=== PATIENT | female | born 1960 | race American Indian/Alaskan Native ===

== ENCOUNTER 2017-10-05 20:07 | Emergency (ER) | payer BC, OTHER ==
[2017-10-05 20:28] VITALS: BP 175/77
[2017-10-05] MEDS ORDERED: Bacitracin Oint 1 GM U/D Packet TOP ONE (20:42)
[2017-10-05] MEDS ORDERED: Clindamycin HCl 150 MG Cap PO ONE (20:48)
--- NOTE | 2017-10-05 20:52 | EDM.PDOC ---
ED HPI GENERAL MEDICAL PROBLEM - General Chief Complaint: Skin Complaint Stated Complaint: INFECTED LEG [id number] Time Seen by Provider: 10/05/17 20:40 Source of Information: Reports: Patient History Limitations: Reports: No Limitations - History of Present Illness INITIAL COMMENTS - FREE TEXT/NARRATIVE: This 56 yo female patient reports to the ED with an infection to her left posterior calf. The patient reports she noticed the symptoms yesterday, but it got much worse today. The patient reports no history of similar symptoms in the past. The patient reports that she is allergic to Cephalexin. Onset Date: 10/04/17 Duration: Constant, Getting Worse Location: Reports: Lower Extremity, Left Quality: Reports: Ache, Pressure, Sharp Severity: Moderate Improves with: Reports: None Worsens with: Reports: None Associated Symptoms: Reports: No Other Symptoms Treatments [employer]: Reports: Dressing(s), Other Medication(s) Left Lower Posterior Leg Pain Score (Numeric/FACES): 9 - Related Data Allergies Allergy/AdvReac Type Severity Reaction Status Date / Time No Known Allergies Allergy Verified 10/05/17 20:28 Home Meds: Home Meds Aspirin [Aspirin EC] 81 mg PO DAILY 04/09/13 [History] Insulin Detemir [Levemir Flexpen] 40 units SUBCUT DAILY 04/09/13 [History] Loratadine [Claritin] 10 mg PO PRN 04/09/13 [History] Montelukast Sodium 10 mg PO DAILY 04/09/13 [History] Multivitamin [Multi Vitamin Daily] 1 each PO DAILY 04/09/13 [History] atorvaSTATin Calcium [Atorvastatin Calcium] 40 mg PO DAILY 04/09/13 [History] glyBURIDE [Glyburide] 5 mg PO BID 04/09/13 [History] metFORMIN HCl [Metformin HCl] 1,000 mg PO BID 04/09/13 [History] Advair 06/09/13 [History] Proventil Inhaler 06/09/13 [History] Past Medical History HEENT History: Reports: Impaired Vision Cardiovascular History: Reports: High Cholesterol Gastrointestinal History: Reports: Cholelithiasis Endocrine/Metabolic History: Reports: Diabetes, Type II - Past Surgical History GI Surgical History: Reports: Appendectomy, Cholecystectomy Social & Family History - Tobacco Use Smoking Status *Q: Current Every Day Smoker Years of Tobacco use: 18 Packs/Tins Daily: 0.2 Second Hand Smoke Exposure: Yes - Caffeine Use Caffeine Use: Reports: Coffee, Soda - Recreational Drug Use Recreational Drug Use: No ED ROS GENERAL - Review of Systems Review Of Systems: ROS reveals no pertinent complaints other than HPI. ED EXAM, SKIN/RASH Exam: See Below Exam Limited By: No Limitations General Appearance: Alert, WD/WN, Mild Distress Eye Exam: Bilateral Eye: EOMI, Normal Inspection, PERRL Ears: Normal External Exam, Normal Canal, Hearing Grossly Normal, Normal TMs Nose: Normal Inspection, Normal Mucosa, No Blood Throat/Mouth: Normal Inspection, Normal Lips, Normal Teeth, Normal Gums, Normal Oropharynx, Normal Voice, No Airway Compromise Head: Atraumatic, Normocephalic Neck: Normal Inspection, Supple, Non-Tender, Full Range of Motion Respiratory/Chest: No Respiratory Distress, Lungs Clear, Normal Breath Sounds, No Accessory Muscle Use, Chest Non-Tender Cardiovascular: Normal Peripheral Pulses, Regular Rate, Rhythm, No Edema, No Gallop, No JVD, No Murmur, No Rub GI/Abdominal: Normal Bowel Sounds, Soft, Non-Tender, No Organomegaly, No Distention, No Abnormal Bruit, No Mass Rectal (Female) Exam: Deferred Back Exam: Normal Inspection, Full Range of Motion, NT Extremities: Other (The patient has an indurated, erythematous area on her posterior left calf (3 cm x 2 cm), the patient also has an ingrown fingernail on her right 3rd finger.) Neurological: Alert, Oriented, CN II-XII Intact, Normal Cognition, Normal Gait, Normal Reflexes, No Motor/Sensory Deficits Psychiatric: Normal Affect, Normal Mood Skin: Erythema, Increased Warmth Location, Skin: Upper Extremity, Right, Lower Extremity, Left Characteristics: Erythematous Associated features: Warmth, Tenderness, Swelling, Induration Lymphatic: No Adenopathy ED SKIN PROCEDURES - I&D Site: left posterior calf Skin Prep: Providone-Iodine (Betadine), Isopropyl Alcohol (Alcohol) Local Anesthesia: Lidocaine: Other (none) Area Incised With: Needle Drainage: Purulent, Moderate Amount Probed to Break Up Loculations: Yes Packed With: None Sterile Dressing: Adhesive Dressing Complications: No Course - Vital Signs Last Recorded V/S: Last Vital Signs Temp 36.8 C 10/05/17 20:27 Pulse 106 H 10/05/17 20:27 Resp 20 10/05/17 20:27 BP 175/77 H 10/05/17 20:27 Pulse Ox 99 10/05/17 20:27 - Orders/Labs/Meds Orders: Active Orders 24 hr Category Date Time Status CULTURE WOUND [RM] Stat Lab 10/05/17 20:31 Ordered Meds: Medications Discontinued Medications Generic Name Dose Route Start Last Admin Trade Name Jett PRN Reason Stop Dose Admin Bacitracin 1 dose 10/05/17 20:42 10/05/17 20:46 Bacitracin Oint 1 Gm TOP 10/05/17 20:43 1 dose ONETIME ONE Administration Clindamycin HCl 300 mg 10/05/17 20:48 10/05/17 20:54 Cleocin PO 10/05/17 20:49 300 mg ONETIME ONE Administration Departure - Departure Time of Disposition: 20:50 Disposition: Home, Self-Care 01 Condition: Fair Clinical Impression: Abscess of left lower leg, Encounter for incision and drainage procedure - Discharge Information Instructions: Skin Abscess, [id number], Incision and Drainage, Care After Forms: ED Department Discharge Care Plan Goals: The patient was advised of the examination during the visit. The abscess was incised and drained during the visit. The patient was given a dose of Clindamycin (300 mg) while in the ED. The patient was discharged with a script for Clindamycin (300 mg) #40 to take 1 by mouth 4 times per day for 10 days. If the patient has any additional symptoms or concerns, the patient should follow- up with her primary care facility or return to the emergency department. - My Orders Last 24 Hours: My Active Orders 10/05/17 20:31 CULTURE WOUND [RM] Stat - Assessment/Plan Last 24 Hours: My Active Orders 10/05/17 20:31 CULTURE WOUND [RM] Stat
== END 2017-10-05 20:59 | disposition home or self-care (01) ==
LOC: DL.ED 20:07
DX: L02.416 Cutaneous abscess of left lower limb (principal); E78.00 Pure hypercholesterolemia, unspecified; E11.9 Type 2 diabetes mellitus without complications; F17.210 Nicotine dependence, cigarettes, uncomplicated; Z79.82 Long term (current) use of aspirin; Z79.4 Long term (current) use of insulin
CPT/HCPCS: 10060; 87070; 87077; 87186; 99283; A9270-GY

== ENCOUNTER 2019-10-09 23:17 | Emergency (ER) | payer BC, MEDICAID, OTHER ==
[2019-10-09 23:23] VITALS: BP 166/69; PULSE 78
[2019-10-10 00:27] LABS: ANION GAP 13.5 mEq/L (7-13); CHLORIDE,CL 105 mmol/L (98-107); SODIUM,NA 139 mmol/L (136-145)
--- NOTE | 2019-10-10 00:40 | EDM.PDOC ---
ED HPI GENERAL MEDICAL PROBLEM - General Chief Complaint: ENT Problem Stated Complaint: AMBULANCE-NOSE BLEED Time Seen by Provider: 10/09/19 23:30 Source of Information: Reports: Patient, EMS History Limitations: Reports: No Limitations - History of Present Illness INITIAL COMMENTS - FREE TEXT/NARRATIVE: ED via [facility] with report of nose bleed that started around 2100 tonight. Better now. EMS report stopped with pressure. States worried with hx of anemia. - Related Data Allergies Allergy/AdvReac Type Severity Reaction Status Date / Time clindamycin Allergy Rash Verified 10/09/19 23:57 tramadol Allergy Vomiting Verified 10/09/19 23:57 Home Meds: Home Meds Insulin Detemir [Levemir Flexpen] 30 units SUBCUT DAILY 04/09/13 [History] Montelukast Sodium 10 mg PO DAILY 04/09/13 [History] atorvaSTATin Calcium [Atorvastatin Calcium] 40 mg PO DAILY 04/09/13 [History] glyBURIDE [Glyburide] 10 mg PO BID 04/09/13 [History] metFORMIN HCl [Metformin HCl] 1,000 mg PO BID 04/09/13 [History] Aspirin [Halfprin] 81 mg PO DAILY 03/16/18 [History] Ferrous Gluconate 324 mg PO DAILY 03/16/18 [History] Fluocinonide 30 gm TP BID 03/16/18 [History] Fluticasone Propionate [Flonase] 1 sprays NASBOTH BID 03/16/18 [History] Fluticasone/Salmeterol [Advair 250-50] 2 puff IH DAILY PRN 03/16/18 [History] Lisinopril 40 mg PO DAILY 03/16/18 [History] Loratadine [Claritin] 10 mg PO DAILY 03/16/18 [History] Menthol/Camphor [Anti-Itch Lotion] 1 applic TOP TID 03/16/18 [History] Metoprolol Succinate [Toprol XL] 25 mg PO DAILY 03/16/18 [History] Saxagliptin HCl [Onglyza] 5 mg PO DAILY 03/16/18 [History] hydrOXYzine HCL [hydrOXYzine] 25 mg PO BEDTIME PRN 03/16/18 [History] Past Medical History HEENT History: Reports: Impaired Vision Cardiovascular History: Reports: High Cholesterol, Hypertension Respiratory History: Reports: Asthma, Bronchitis, Recurrent Gastrointestinal History: Reports: Cholelithiasis [employer]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 - Past Surgical History GI Surgical History: Reports: Appendectomy, Cholecystectomy Social & Family History - Family History Family Medical History: Noncontributory - Tobacco Use Smoking Status *Q: Former Smoker Used Tobacco, but Quit: Yes Month/Year Tobacco Last Used: 02/12 Second Hand Smoke Exposure: No - Caffeine Use Caffeine Use: Reports: Coffee Other Caffeine Use: 1 cup/day - Recreational Drug Use Recreational Drug Use: No ED ROS ENT - Review of Systems Review Of Systems: See Below Constitutional: Reports: No Symptoms HEENT: Reports: Nosebleed Respiratory: Reports: No Symptoms Cardiovascular: Reports: No Symptoms Endocrine: Reports: No Symptoms GI/Abdominal: Reports: No Symptoms Musculoskeletal: Reports: No Symptoms Skin: Reports: No Symptoms ED EXAM, ENT - Physical Exam Exam: See Below Exam Limited By: No Limitations General Appearance: Alert, No Apparent Distress, Anxious Ears: Normal External Exam Nose: Other (scant blood right nare, no active bleeding) Mouth/Throat: Normal Inspection Head: Atraumatic, Normocephalic Respiratory/Chest: No Respiratory Distress, Lungs Clear Cardiovascular: Normal Peripheral Pulses, Regular Rate, Rhythm GI/Abdominal: Normal Bowel Sounds Neurological: Alert, Oriented Psychiatric: Normal Mood, Anxious (mild) Skin: Warm, Dry, Intact Course - Vital Signs Last Recorded V/S: Last Vital Signs Temp 97.9 F 10/09/19 23:22 Pulse 78 10/09/19 23:22 Resp 16 10/09/19 23:22 BP 166/69 H 10/09/19 23:22 Pulse Ox 99 10/09/19 23:22 - Orders/Labs/Meds Labs: Laboratory Tests 10/09/19 10/09/19 10/09/19 Range/Units 23:55 23:55 23:55 WBC 6.7 (5.0-10.0) 10^3/uL RBC 3.23 L (4.2-5.4) 10^6/uL Hgb 8.9 L (12.0-16.0) g/dL Hct 28.3 L (37.0-47.0) % MCV 87.6 (80-100) fL MCH 27.6 (27.0-34.0) pg MCHC 31.4 L (33.0-35.0) g/dL Plt Count 420 D (150-450) 10^3/uL Neut % (Auto) 67.4 (42.2-75.2) % Lymph % (Auto) 18.7 L (20.5-50.1) % Nobles % (Auto) 9.0 H (2-8) % Eos % (Auto) 4.5 H (1.0-3.0) % Baso % (Auto) 0.4 (0.0-1.0) % PT 9.4 (9.0-12.0) SEC INR 1.0 (0.9-1.2) Sodium 139 (136-145) mmol/L Potassium 4.5 (3.5-5.1) mmol/L Chloride 105 (98-107) mmol/L Carbon Dioxide 25 (21-32) mmol/L Anion Gap 13.5 H (7-13) mEq/L BUN 11 (7-18) mg/dL Creatinine 0.95 (0.55-1.02) mg/dL Est Cr Clr Drug Dosing 58.95 mL/min Estimated GFR (MDRD) > 60 BUN/Creatinine Ratio 11.6 (No establ ref range) Glucose 116 H (74-99) mg/dL Calcium 8.6 (8.5-10.1) mg/dL Total Bilirubin 0.2 (0.2-1.0) mg/dL AST 8 L (15-37) U/L ALT 21 (14-59) U/L Alkaline Phosphatase 139 H (46-116) U/L Total Protein 6.4 (6.4-8.2) g/dL Albumin 3.3 L (3.4-5.0) g/dL Globulin 3.1 Albumin/Globulin Ratio 1.06 Departure - Departure Time of Disposition: 00:45 Disposition: Home, Self-Care 01 Condition: Good Clinical Impression: Bleeding nose - Discharge Information *PRESCRIPTION DRUG MONITORING PROGRAM REVIEWED*: No *COPY OF PRESCRIPTION DRUG MONITORING REPORT IN PATIENT CRISTINO: No Instructions: Nosebleed, [id number] Forms: ED Department Discharge Additional Instructions: humidification light activity follow up if recurrent severe and does not stop after 5 minutes of pressure follow up with PCP to recheck blood work next week Sepsis Event Note (ED) - Evaluation Sepsis Screening Result: No Definite Risk
== END 2019-10-10 00:44 | disposition home or self-care (01) ==
LOC: DL.ED 23:17
DX: R04.0 Epistaxis (principal); I10 Essential (primary) hypertension; E78.00 Pure hypercholesterolemia, unspecified; E11.9 Type 2 diabetes mellitus without complications; J45.909 Unspecified asthma, uncomplicated; D64.9 Anemia, unspecified; Z87.891 Personal history of nicotine dependence; Z88.1 Allergy status to other antibiotic agents; Z88.5 Allergy status to narcotic agent; Z79.4 Long term (current) use of insulin; Z79.82 Long term (current) use of aspirin; Z79.899 Other long term (current) drug therapy
CPT/HCPCS: 36415; 80053; 85025; 85610; 99283

== ENCOUNTER 2020-01-01 17:07 | Emergency (ER) | payer MEDICAID ==
[2020-01-01] MEDS ORDERED: Sodium Chloride 0.9% 10 ML Syringe FLUSH PRN (17:29)
[2020-01-01] MEDS ORDERED: Dexamethasone 4 MG/ML SDV IVPUSH ONE (17:30)
--- NOTE | 2020-01-01 17:33 | EDM.PDOC ---
"ED HPI GENERAL MEDICAL PROBLEM - General Chief Complaint: Respiratory Problem Stated Complaint: Altered mental status, Hypoxia Time Seen by Provider: 01/01/20 17:32 Source of Information: Reports: Patient, EMS, Old Records, RN, RN Notes Reviewed History Limitations: Reports: Altered Mental Status - History of Present Illness INITIAL COMMENTS - FREE TEXT/NARRATIVE: Pt arrives from home by ambulance with c/o altered mental status and hypoxia. Pt was admitted to [facility] on 12/21/19 COVID positive with diarrhea, weakness, shortness of breath, headache, and cough. Initial COVID was positive on 12/21/19 at [facility]. While admitted at [facility] pt was treated with Remdesivir, convalescent plasma, and Dexamethasone. Pt recovered well and was discharged home on Oxygen 2L by [place], Eliquis 5mg due to elevating D-dimer, and Augmentin for secondary infection. Pt is confused and provides very limited history. She admits to shortness of breath, she thinks she fell at home due to weakness and dizziness. Duration: Week(s): (2) - Related Data Allergies Allergy/AdvReac Type Severity Reaction Status Date / Time clindamycin Allergy Rash Verified 10/09/19 23:57 tramadol Allergy Vomiting Verified 10/09/19 23:57 Home Meds: Home Meds Insulin Detemir [Levemir Flexpen] 30 units SUBCUT DAILY 04/09/13 [History] Montelukast Sodium 10 mg PO DAILY 04/09/13 [History] atorvaSTATin Calcium [Atorvastatin Calcium] 40 mg PO DAILY 04/09/13 [History] glyBURIDE [Glyburide] 10 mg PO BID 04/09/13 [History] metFORMIN HCl [Metformin HCl] 1,000 mg PO BID 04/09/13 [History] Aspirin [Halfprin] 81 mg PO DAILY 03/16/18 [History] Ferrous Gluconate 324 mg PO DAILY 03/16/18 [History] Fluocinonide 30 gm TP BID 03/16/18 [History] Fluticasone Propionate [Flonase] 1 sprays NASBOTH BID 03/16/18 [History] Fluticasone/Salmeterol [Advair 250-50] 2 puff IH DAILY PRN 03/16/18 [History] Lisinopril 40 mg PO DAILY 03/16/18 [History] Loratadine [Claritin] 10 mg PO DAILY 03/16/18 [History] Menthol/Camphor [Anti-Itch Lotion] 1 applic TOP TID 03/16/18 [History] Metoprolol Succinate [Toprol XL] 25 mg PO DAILY 03/16/18 [History] Saxagliptin HCl [Onglyza] 5 mg PO DAILY 03/16/18 [History] hydrOXYzine HCL [hydrOXYzine] 25 mg PO BEDTIME PRN 03/16/18 [History] Past Medical History HEENT History: Reports: Impaired Vision Cardiovascular History: Reports: High Cholesterol, Hypertension Respiratory History: Reports: Asthma, Bronchitis, Recurrent Gastrointestinal History: Reports: Cholelithiasis [employer] History: Reports: Endocrine/Metabolic History: Reports: Diabetes, Type II Hematologic History: Reports: Anemia, Blood Transfusion(s) Other Hematologic History: 2 units at [facility] recently Dermatologic History: Reports: Other (See Below) Other Dermatologic History: Rash througout body. - Past Surgical History GI Surgical History: Reports: Appendectomy, Cholecystectomy Social & Family History - Family History Family Medical History: Noncontributory - Caffeine Use Caffeine Use: Reports: Coffee Other Caffeine Use: 1 cup/day ED ROS GENERAL - Review of Systems Review Of Systems: Unable To Obtain Reason Not Obtained: Altered mental status ED EXAM, GENERAL - Physical Exam Exam: See Below Exam Limited By: Altered Mental Status General Appearance: Lethargic, Mild Distress, Other (Acutely ill appearing) Eye Exam: Bilateral Eye: EOMI (sluggish B/L) Nose: Normal Inspection, Normal Mucosa, No Blood Throat/Mouth: Normal Lips, Normal Oropharynx, Normal Voice, No Airway Compromise, Other (Dry oral mucosa) Head: Atraumatic, Normocephalic Neck: Normal Inspection, Non-Tender Respiratory/Chest: No Accessory Muscle Use, Decreased Breath Sounds, Crackles. No: Rales, Rhonchi, Wheezing Cardiovascular: Normal Peripheral Pulses, Regular Rate, Rhythm, No Edema GI/Abdominal: Normal Bowel Sounds, Soft, Non-Tender (Female) Exam: Deferred Rectal (Female) Exam: Heme + Stool Extremities: Normal Inspection Neurological: Confused, Disoriented, Slow to Respond Skin Exam: Warm, Dry, Intact, Normal Color, No Rash EKG INTERPRETATION EKG Date: 01/01/20 Time: 17:27 Rhythm: Other (SR) Rate (Beats/Min): 75 [place]: Normal P-Wave: Present QRS: Normal ST-T: Normal QT: Prolonged Comparison: NA - No Prior EKG Course - Vital Signs Last Recorded V/S: Last Vital Signs Temp 96.8 F L 01/01/20 17:40 Pulse 73 01/01/20 17:40 Resp 22 H 01/01/20 17:40 BP 89/29 L 01/01/20 17:40 Pulse Ox 92 L 01/01/20 17:40 - Orders/Labs/Meds Orders: Active Orders 24 hr Category Date Time Status Blood Glucose Check, Bedside [RC] ONETIME Care 01/01/20 17:44 Active EKG 12 Lead [EKG Documentation Completion] [RC] STAT Care 01/01/20 17:29 Active Peripheral IV Care [RC] . DIRECTED Care 01/01/20 17:30 Active Verify Patient Consent Obtain [RC] ASDIRECTED Care 01/01/20 18:15 Active CULTURE BLOOD [BC] Stat Lab 01/01/20 17:38 Received CULTURE BLOOD [BC] Stat Lab 01/01/20 17:45 Received RED BLOOD CELLS LP [BBK] Stat Lab 01/01/20 17:38 Received TYPE AND SCREEN [BBK] Stat Lab 01/01/20 17:38 Received Norepinephrine [Levophed] 4 mg Med 01/01/20 18:30 Active Dextrose 5% in Water 246 ml IV TITRATE Sodium Chloride 0.9% [Saline Flush] Med 01/01/20 17:29 Active 10 ml FLUSH ASDIRECTED PRN Blood Culture x2 Reflex Set [OM.PC] Stat Oth 01/01/20 17:30 Ordered Blood Transfusion Reflex Orders [OM.PC] Routine Oth 01/01/20 18:14 Ordered Peripheral IV Insertion Adult [OM.PC] Stat Oth 01/01/20 17:29 Ordered Transfuse Red Blood Cells [COMM] Stat Oth 01/01/20 18:14 Ordered Medication Orders Norepinephrine Bitartrate 4 mg (/ Dextrose/Water) 250 mls @ 18.75 mls/hr IV TITRATE ELVIRA; Protocol Sodium Chloride (Saline Flush) 10 ml FLUSH ASDIRECTED PRN PRN Reason: Keep Vein Open Last Admin: 01/01/20 17:50 Dose: 10 ml Documented by: CYRIL Labs: Laboratory Tests 01/01/20 01/01/20 01/01/20 Range/Units 17:38 17:38 17:38 WBC 18.4 H (5.0-10.0) 10^3/uL RBC 2.10 L (4.2-5.4) 10^6/uL Hgb 5.7 L* D (12.0-16.0) g/dL Hct 18.5 L* (37.0-47.0) % MCV 88.1 (80-100) fL MCH 27.1 (27.0-34.0) pg MCHC 30.8 L (33.0-35.0) g/dL Plt Count 524 H D (150-450) 10^3/uL Neut % (Auto) (42.2-75.2) % Add Manual Diff Yes Neutrophils % (Manual) 79 H (42-75) % Band Neutrophils % 3 % Lymphocytes % (Manual) 7 L (20-50) % Monocytes % (Manual) 7 (2-8) % Myelocytes % 4 Hypochromasia 1+ slight Poikilocytosis 1+ slight PT 11.3 (9.0-12.0) SEC INR 1.2 (0.9-1.2) APTT 23.8 (22.0-34.0) SEC D-Dimer, Quantitative 989 H (0-400) ng/mL ABG pH (7.35-7.45) ABG pCO2 (35-45) mmHg ABG pO2 (70-100) mmHg ABG HCO3 (22-26) mmol/L ABG O2 Saturation (95-100) % ABG Base Excess ((-2)-(+3)) mmol/L Hai Test O2 Delivery Device Oxygen Flow Rate Sodium 131 L (136-145) mmol/L Potassium 5.5 H (3.5-5.1) mmol/L Chloride 100 (98-107) mmol/L Carbon Dioxide 20 L (21-32) mmol/L Anion Gap 16.5 H (7-13) mEq/L BUN 35 H (7-18) mg/dL Creatinine 1.35 H (0.55-1.02) mg/dL Est Cr Clr Drug Dosing TNP Estimated GFR (MDRD) 40 BUN/Creatinine Ratio 25.9 (No establ ref range) Glucose 377 H (74-99) mg/dL POC Glucose (70-105) mg/dl Lactic Acid (0.4-2.0) mmol/L Calcium 7.5 L (8.5-10.1) mg/dL Total Bilirubin 0.2 (0.2-1.0) mg/dL AST 11 L (15-37) U/L ALT 26 (14-59) U/L Alkaline Phosphatase 100 (46-116) U/L Troponin I < 0.017 (0.000-0.056) ng/mL B-Natriuretic Peptide 24 (0-100) pg/ml Total Protein 4.2 L (6.4-8.2) g/dL Albumin 1.7 L (3.4-5.0) g/dL Globulin 2.5 Albumin/Globulin Ratio 0.68 01/01/20 01/01/20 01/01/20 Range/Units 17:38 17:45 17:45 WBC (5.0-10.0) 10^3/uL RBC (4.2-5.4) 10^6/uL Hgb (12.0-16.0) g/dL Hct (37.0-47.0) % MCV (80-100) fL MCH (27.0-34.0) pg MCHC (33.0-35.0) g/dL Plt Count (150-450) 10^3/uL Neut % (Auto) (42.2-75.2) % Add Manual Diff Neutrophils % (Manual) (42-75) % Band Neutrophils % % Lymphocytes % (Manual) (20-50) % Monocytes % (Manual) (2-8) % Myelocytes % Hypochromasia Poikilocytosis PT (9.0-12.0) SEC INR (0.9-1.2) APTT (22.0-34.0) SEC D-Dimer, Quantitative (0-400) ng/mL ABG pH 7.42 (7.35-7.45) ABG pCO2 29 L (35-45) mmHg ABG pO2 75 (70-100) mmHg ABG HCO3 18.0 L (22-26) mmol/L ABG O2 Saturation 96 (95-100) % ABG Base Excess -6 L ((-2)-(+3)) mmol/L Hai Test Lb O2 Delivery Device Nasal cannula Oxygen Flow Rate 4 Sodium (136-145) mmol/L Potassium (3.5-5.1) mmol/L Chloride (98-107) mmol/L Carbon Dioxide (21-32) mmol/L Anion Gap (7-13) mEq/L BUN (7-18) mg/dL Creatinine (0.55-1.02) mg/dL Est Cr Clr Drug Dosing Estimated GFR (MDRD) BUN/Creatinine Ratio (No establ ref range) Glucose (74-99) mg/dL POC Glucose 383 H (70-105) mg/dl Lactic Acid 3.8 H* (0.4-2.0) mmol/L Calcium (8.5-10.1) mg/dL Total Bilirubin (0.2-1.0) mg/dL AST (15-37) U/L ALT (14-59) U/L Alkaline Phosphatase (46-116) U/L Troponin I (0.000-0.056) ng/mL B-Natriuretic Peptide (0-100) pg/ml Total Protein (6.4-8.2) g/dL Albumin (3.4-5.0) g/dL Globulin Albumin/Globulin Ratio Hemoccult Stool: POSITIVE Meds: Medications Generic Name Dose Route Start Last Admin Trade Name Freq PRN Reason Stop Dose Admin Norepinephrine Bitartrate 4 mg 250 mls @ 18.75 mls/hr 01/01/20 18:30 / Dextrose/Water IV TITRATE ELVIRA Protocol 5 MCG/MIN Sodium Chloride 10 ml 01/01/20 17:29 01/01/20 17:50 Saline Flush FLUSH 10 ml ASDIRECTED PRN Administration Keep Vein Open Discontinued Medications Generic Name Dose Route Start Last Admin Trade Name Freq PRN Reason Stop Dose Admin Acetaminophen 650 mg 01/01/20 18:14 01/01/20 18:28 Tylenol PO 01/01/20 18:15 650 mg NOW ONE Administration Dexamethasone 6 mg 01/01/20 17:30 01/01/20 17:49 Dexamethasone IVPUSH 01/01/20 17:31 6 mg ONETIME ONE Administration Diphenhydramine HCl 12.5 mg 01/01/20 18:14 01/01/20 18:28 Benadryl IV 01/01/20 18:15 12.5 mg ONETIME ONE Administration Iopamidol 100 ml 01/01/20 17:52 [id number] (76%) IVPUSH 01/01/20 17:53 ONETIME ONE Pantoprazole Sodium 80 mg 01/01/20 18:38 Protonix Iv IVPUSH 01/01/20 18:39 .BOLUS ONE - Radiology Interpretation Free Text/Narrative:: [facility] [place] [facility] Final Radiology Report Call: [phone] assistance Online chat: [email or web address] Name: LAVELL SANON Age: 59Years F Date: 01/01/2020 SSN: -- : 1960 Study: CT CHEST W CONT Requesting Physician: CYNTHIA CABRERA Images: [id number] Addl Studies: Provided Clinical History: COVID, suddenly worse hypoxia, poss. PE Contrast: With Contrast Medium: [id number] Contrast Amount: 81 mL Contrast Method: Intravenous (IV) Page 1 of 2 PROCEDURE INFORMATION: Exam: CT Chest With Contrast Exam date and time: 01/01/2020 6:04 PM Age: 59 years old Clinical indication: Other: D-dimer >1900; Additional info: Covid, suddenly worse hypoxia, poss. Pe TECHNIQUE: Imaging protocol: Computed tomography of the chest with intravenous contrast. Radiation optimization: All CT scans at this facility use at least one of these dose optimization techniques: automated exposure control; mA and/or kV adjustment per patient size (includes targeted exams where dose is matched to clinical indication); or iterative reconstruction. Contrast material: [id number]; Contrast volume: 81 ml; Contrast route: I NTRAVENOUS (IV); COMPARISON: CT Chest w Cont 03/03/2018 2:13 PM FINDINGS: Lungs: There are areas of peripheral airspace opacity with ground-glass opacity and nodular character. Consolidation is present within the left lower lobe. Findings are compatible the patient's known Covid 19 pneumonia. Pleural space: Unremarkable. No pneumothorax. No pleural effusion. Heart: The heart appears to be mildly enlarged. There is no pericardial effusion. Mild coronary atherosclerosis noted along the course of the left anterior descending coronary artery. Aorta: Unremarkable. No aortic aneurysm. Lymph nodes: Unremarkable. No enlarged lymph nodes. Bones/joints: Unremarkable. No acute fracture. Soft tissues: Unremarkable. IMPRESSION: LAVELL SANON | Final Radiology Report CONFIDENTIALITY STATEMENT This report is intended only for use by the referring physician, and only in accordance with law. If you received this in error, call [phone]. Page 2 of 2 1. No pulmonary embolism present. 2. Persisting multifocal peripheral airspace opacity with fluctuating pattern when compared to the previous examination. Findings compatible the patient's known Covid 19 pneumonia. 3. Cardiomegaly with mild coronary atherosclerosis. Thank you for allowing us to participate in the care of your patient. Dictated and Authenticated by: Jovanni Christianson MD 01/01/2020 6:33 PM Central Time ([place] & [place]) - Re-Assessments/Exams Free Text/Narrative Re-Assessment/Exam: 01/01/20 18:08 *I consulted Dr. Noonan via [employer], and obtained a copy of the pt's discharge summary. Departure - Departure Time of Disposition: 18:35 Disposition: DC/Tfer to [facility] Condition: Critical Clinical Impression: Severe anemia, COVID-19, Acute respiratory failure due to COVID-19 Sepsis Qualifiers: Sepsis type: sepsis due to unspecified organism Sepsis acute organ dysfunction status: with acute organ dysfunction Severe sepsis acute organ dysfunction type: acute respiratory failure Acute respiratory failure type: with hypoxia Severe sepsis shock status: with septic shock Qualified Code(s): A41.9 - Sepsis, unspecified organism; R65.21 - Severe sepsis with septic shock; J96.01 - Acute respiratory failure with hypoxia GI bleed Qualifiers: GI bleed type/associated pathology: unspecified gastrointestinal hemorrhage type Qualified Code(s): K92.2 - Gastrointestinal hemorrhage, unspecified - Discharge Information *PRESCRIPTION DRUG MONITORING PROGRAM REVIEWED*: Not Applicable *COPY OF PRESCRIPTION DRUG MONITORING REPORT IN PATIENT CRISTINO: Not Applicable Forms: ED Department Discharge, Interfacility Transfer EMTALA Sepsis Event Note (ED) - Focused Exam Vital Signs: Vital Signs Temp Pulse Resp BP Pulse Ox 01/01/20 17:40 96.8 F L 73 22 H 89/29 L 92 L - My Orders Last 24 Hours: My Active Orders 01/01/20 17:29 EKG 12 Lead [EKG Documentation Completion] [RC] STAT Sodium Chloride 0.9% [Saline Flush] 10 ml FLUSH ASDIRECTED PRN Peripheral IV Insertion Adult [OM.PC] Stat 01/01/20 17:30 Peripheral IV Care [RC] . DIRECTED Blood Culture x2 Reflex Set [OM.PC] Stat 01/01/20 17:38 CULTURE BLOOD [BC] Stat RED BLOOD CELLS LP [BBK] Stat TYPE AND SCREEN [BBK] Stat 01/01/20 17:44 Blood Glucose Check, Bedside [RC] ONETIME 01/01/20 17:45 CULTURE BLOOD [BC] Stat 01/01/20 18:14 Blood Transfusion Reflex Orders [OM.PC] Routine Transfuse Red Blood Cells [COMM] Stat 01/01/20 18:15 Verify Patient Consent Obtain [RC] ASDIRECTED 01/01/20 18:30 Norepinephrine [Levophed] 4 mg Dextrose 5% in Water 246 ml IV TITRATE - Assessment/Plan Last 24 Hours: My Active Orders 01/01/20 17:29 EKG 12 Lead [EKG Documentation Completion] [RC] STAT Sodium Chloride 0.9% [Saline Flush] 10 ml FLUSH ASDIRECTED PRN Peripheral IV Insertion Adult [OM.PC] Stat 01/01/20 17:30 Peripheral IV Care [RC] . DIRECTED Blood Culture x2 Reflex Set [OM.PC] Stat 01/01/20 17:38 CULTURE BLOOD [BC] Stat RED BLOOD CELLS LP [BBK] Stat TYPE AND SCREEN [BBK] Stat 01/01/20 17:44 Blood Glucose Check, Bedside [RC] ONETIME 01/01/20 17:45 CULTURE BLOOD [BC] Stat 01/01/20 18:14 Blood Transfusion Reflex Orders [.PC] Routine Transfuse Red Blood Cells [COMM] Stat 01/01/20 18:15 Verify Patient Consent Obtain [RC] ASDIRECTED 01/01/20 18:30 Norepinephrine [Levophed] 4 mg Dextrose 5% in Water 246 ml IV TITRATE"
[2020-01-01 17:46] LABS: BASE EXCESS ARTERIAL -6 mmol/L ((-2)-(+3)); O2 DELIVERY DEVICE NASAL CANNULA; O2 SATURATION ARTERIAL 96 % (95-100); PCO2 ARTERIAL 29 mmHg (35-45); PO2 ARTERIAL 75 mmHg (70-100)
[2020-01-01 17:48] LABS: ALLEN TEST LB; O2 FLOW RATE 4
[2020-01-01 17:49] VITALS: BP 89/29; PULSE 73
[2020-01-01] MEDS ORDERED: Iopamidol 755 Mg/ML 100 ML Bottle IVPUSH ONE (17:52)
[2020-01-01] MEDS ORDERED: diphenhydrAMINE 50 MG/ML SDV IV ONE (18:14)
[2020-01-01] MEDS ORDERED: Acetaminophen 325 MG Tab PO ONE (18:14)
[2020-01-01 18:16] LABS: PTT,PARTIAL THROMBOPLSTIN TIME 23.8 SEC (22.0-34.0)
[2020-01-01 18:19] LABS: ANION GAP 16.5 mEq/L (7-13); CHLORIDE,CL 100 mmol/L (98-107); SODIUM,NA 131 mmol/L (136-145)
[2020-01-01] MEDS ORDERED: Norepinephrine 4 MG in Dextrose 5% in Water 246 ML IV SCH ×2 (18:30)
--- NOTE | 2020-01-01 18:33 | CT ---
PROCEDURE INFORMATION: Exam: CT Chest With Contrast Exam date and time: 01/01/2020 6:04 PM Age: 59 years old Clinical indication: Other: D-dimer >1900; Additional info: Covid, suddenly worse hypoxia, poss. Pe TECHNIQUE: Imaging protocol: Computed tomography of the chest with intravenous contrast. Radiation optimization: All CT scans at this facility use at least one of these dose optimization techniques: automated exposure control; mA and/or kV adjustment per patient size (includes targeted exams where dose is matched to clinical indication); or iterative reconstruction. Contrast material: [id number]; Contrast volume: 81 ml; Contrast route: INTRAVENOUS (IV); COMPARISON: CT Chest w Cont 03/03/2018 2:13 PM FINDINGS: Lungs: There are areas of peripheral airspace opacity with ground-glass opacity and nodular character. Consolidation is present within the left lower lobe. Findings are compatible the patient's known Covid 19 pneumonia. Pleural space: Unremarkable. No pneumothorax. No pleural effusion. Heart: The heart appears to be mildly enlarged. There is no pericardial effusion. Mild coronary atherosclerosis noted along the course of the left anterior descending coronary artery. Aorta: Unremarkable. No aortic aneurysm. Lymph nodes: Unremarkable. No enlarged lymph nodes. Bones/joints: Unremarkable. No acute fracture. Soft tissues: Unremarkable. IMPRESSION: 1. No pulmonary embolism present. 2. Persisting multifocal peripheral airspace opacity with fluctuating pattern when compared to the previous examination. Findings compatible the patient's known Covid 19 pneumonia. 3. Cardiomegaly with mild coronary atherosclerosis.
[2020-01-01] MEDS ORDERED: Pantoprazole 40 MG Vial IVPUSH ONE (18:38)
== END 2020-01-01 19:00 ==
LOC: DL.ED 17:07
DX: A41.89 Other specified sepsis (principal); U07.1 COVID-19; R65.21 Severe sepsis with septic shock; J96.01 Acute respiratory failure with hypoxia; K92.2 Gastrointestinal hemorrhage, unspecified; D64.9 Anemia, unspecified; I10 Essential (primary) hypertension; E78.00 Pure hypercholesterolemia, unspecified; J45.909 Unspecified asthma, uncomplicated; E11.9 Type 2 diabetes mellitus without complications; R41.82 Altered mental status, unspecified; Z88.1 Allergy status to other antibiotic agents; Z88.5 Allergy status to narcotic agent; Z79.899 Other long term (current) drug therapy; Z79.82 Long term (current) use of aspirin
CPT/HCPCS: 36415; 36430; 36600; 71260; 80053; 82272; 82803; 82962; 83605; 83880; 84484; 85025; 85379; 85610; 85730; 86850; 86900; 86901; 86920; 86922; 87040; 93005; 96374; 96375; 99285; A9270; C9113; J1100; J1200; P9016; Q9967

== ENCOUNTER 2020-02-16 15:11 | Emergency (ER) | payer MEDICAID ==
[2020-02-16 15:26] VITALS: BP 150/67; PULSE 86
--- NOTE | 2020-02-16 15:39 | EDM.PDOC ---
ED HPI GENERAL MEDICAL PROBLEM - General Chief Complaint: General Stated Complaint: LOSING BLOOD, WEAKNESS, DIZZINESS Time Seen by Provider: 02/16/20 15:26 Source of Information: Reports: Patient, RN, RN Notes Reviewed History Limitations: Reports: No Limitations - History of Present Illness INITIAL COMMENTS - FREE TEXT/NARRATIVE: Patient presents to the ED via personal vehicle with complaints of weakness and fatigue. Per the patient, these symptoms began late last evening and progressed to the point "...that I felt drunk." She denies cough, chest pain/pressure, shortness of breath, sore throat, vision changes, fever, headache, nausea, vomiting, diarrhea, dysuria, hematuria, hematochezia, melena, or changes to bowel/bladder patterns. She denies changes to her diet or recent intoxication. She attest to eating breakfast and lunch as normal today. She states she did receive a B12 injection this past 02/14/20, as normal for previously diagnosed anemia. She also relates two weeks ago she underwent and EGD with Dr. Duran at in [place] for which two biopsy were taken and "..two tears" were repaired. She denies taking any medications for her weakness and fatigue. - Related Data Allergies Allergy/AdvReac Type Severity Reaction Status Date / Time clindamycin Allergy Rash Verified 02/16/20 15:23 tramadol Allergy Vomiting Verified 02/16/20 15:23 Home Meds: Home Meds Insulin Detemir [Levemir Flexpen] 30 units SUBCUT DAILY 04/09/13 [History] Montelukast Sodium 10 mg PO DAILY 04/09/13 [History] atorvaSTATin Calcium [Atorvastatin Calcium] 40 mg PO DAILY 04/09/13 [History] glyBURIDE [Glyburide] 10 mg PO BID 04/09/13 [History] metFORMIN HCl [Metformin HCl] 1,000 mg PO BID 04/09/13 [History] Aspirin [Halfprin] 81 mg PO DAILY 03/16/18 [History] Ferrous Gluconate 324 mg PO DAILY 03/16/18 [History] Fluocinonide 30 gm TP BID 03/16/18 [History] Fluticasone Propionate [Flonase] 1 sprays NASBOTH BID 03/16/18 [History] Fluticasone/Salmeterol [Advair 250-50] 2 puff IH DAILY PRN 03/16/18 [History] Lisinopril 40 mg PO DAILY 03/16/18 [History] Loratadine [Claritin] 10 mg PO DAILY 03/16/18 [History] Menthol/Camphor [Anti-Itch Lotion] 1 applic TOP TID 03/16/18 [History] Metoprolol Succinate [Toprol XL] 25 mg PO DAILY 03/16/18 [History] Saxagliptin HCl [Onglyza] 5 mg PO DAILY 03/16/18 [History] hydrOXYzine HCL [hydrOXYzine] 25 mg PO BEDTIME PRN 03/16/18 [History] Past Medical History HEENT History: Reports: Impaired Vision Cardiovascular History: Reports: High Cholesterol, Hypertension Respiratory History: Reports: Asthma, Bronchitis, Recurrent Gastrointestinal History: Reports: Cholelithiasis Genitourinary History: Reports: None 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 - Infectious Disease History Infectious Disease History: Reports: None - Past Surgical History Head Surgeries/Procedures: Reports: None GI Surgical History: Reports: Appendectomy, Cholecystectomy Social & Family History - Family History Family Medical History: Noncontributory - Tobacco Use Tobacco Use Status *Q: Never Tobacco User Second Hand Smoke Exposure: No - Caffeine Use Caffeine Use: Reports: None Other Caffeine Use: 1 cup/day - Recreational Drug Use Recreational Drug Use: No ED ROS GENERAL - Review of Systems Review Of Systems: Comprehensive ROS is negative, except as noted in HPI. ED EXAM, GENERAL - Physical Exam Exam: See Below Exam Limited By: No Limitations General Appearance: Alert, WD/WN, No Apparent Distress Eye Exam: Bilateral Eye: EOMI, Normal Inspection, Nystagmus (No nystagmus present), PERRL Throat/Mouth: Normal Voice, No Airway Compromise Head: Atraumatic, Normocephalic Neck: Normal Inspection, Supple, Non-Tender Respiratory/Chest: No Respiratory Distress, Lungs Clear, Normal Breath Sounds, No Accessory Muscle Use, Chest Non-Tender Cardiovascular: Normal Peripheral Pulses, Regular Rate, Rhythm, No Gallop, No Murmur, No Rub. No: No Edema Peripheral Pulses: 2+: Radial (L), Radial (R) GI/Abdominal: Normal Bowel Sounds, Soft, Non-Tender, No Distention, No Mass, Pelvis Stable (Female) Exam: Deferred Rectal (Female) Exam: Deferred Back Exam: Normal Inspection, Full Range of Motion Extremities: Normal Inspection, Normal Range of Motion, Non-Tender, Normal Capillary Refill, Pedal Edema (+2 pitting to RLE; +1 pititng to LLE). No: Leg Pain, Pallor, Redness Neurological: Alert, Oriented, CN II-XII Intact, No Motor/Sensory Deficits Psychiatric: Normal Mood, Flat Affect Skin Exam: Warm, Dry, Intact, Normal Color, No Rash. No: Ecchymosis, Erythema, Mottled, Pallor, Petechiae, Rash #1 Interpretation EKG Date: 02/16/20 Time: 15:42 Rhythm: NSR Rate (Beats/Min): 79 [place]: Normal P-Wave: Present QRS: Normal ST-T: Normal QT: Normal Comparison: No Change (NSR; No evidence of acute ischemia) Course - Vital Signs Last Recorded V/S: Last Vital Signs Temp 97.6 F 02/16/20 15:24 Pulse 86 02/16/20 15:24 Resp 18 02/16/20 15:24 BP 150/67 H 02/16/20 15:24 Pulse Ox 97 02/16/20 15:24 - Orders/Labs/Meds Orders: Active Orders 24 hr Category Date Time Status EKG Documentation Completion [RC] STAT Care 02/16/20 15:29 Active UA W/MICROSCOPIC [URIN] Stat Lab 02/16/20 15:33 Results Isolation [COMM] Routine Oth 02/16/20 15:33 Active Labs: Laboratory Tests 02/16/20 02/16/20 02/16/20 Range/Units 15:33 15:33 15:52 WBC 7.6 (5.0-10.0) 10^3/uL RBC 2.99 L (4.2-5.4) 10^6/uL Hgb 8.5 L D (12.0-16.0) g/dL Hct 26.6 L (37.0-47.0) % MCV 89.0 (80-100) fL MCH 28.4 (27.0-34.0) pg MCHC 32.0 L (33.0-35.0) g/dL Plt Count 322 D (150-450) 10^3/uL Neut % (Auto) 74.6 (42.2-75.2) % Lymph % (Auto) 11.9 L (20.5-50.1) % [place] % (Auto) 10.5 H (2-8) % Eos % (Auto) 2.5 (1.0-3.0) % Baso % (Auto) 0.5 (0.0-1.0) % Sodium (136-145) mmol/L Potassium (3.5-5.1) mmol/L Chloride (98-107) mmol/L Carbon Dioxide (21-32) mmol/L Anion Gap (7-13) mEq/L BUN (7-18) mg/dL Creatinine (0.55-1.02) mg/dL Est Cr Clr Drug Dosing mL/min Estimated GFR (MDRD) BUN/Creatinine Ratio (No establ ref range) Glucose (74-99) mg/dL Lactic Acid (0.4-2.0) mmol/L Calcium (8.5-10.1) mg/dL Total Bilirubin (0.2-1.0) mg/dL AST (15-37) U/L ALT (14-59) U/L Alkaline Phosphatase (46-116) U/L Troponin I (0.000-0.056) ng/mL C-Reactive Protein (0.0-0.9) mg/dL Total Protein (6.4-8.2) g/dL Albumin (3.4-5.0) g/dL Globulin Albumin/Globulin Ratio Urine Color Yellow (YELLOW) Urine Appearance Clear (CLEAR) Urine pH 6.0 (5.0-9.0) Ur Specific [place] 1.020 (1.005-1.030) Urine Protein 100 H (NEGATIVE) Urine Glucose (UA) Negative (NEGATIVE) Urine Ketones Negative (NEGATIVE) Urine Occult Blood Trace-intact H (NEGATIVE) Urine Nitrite Negative (NEGATIVE) Urine Bilirubin Negative (NEGATIVE) Urine Urobilinogen 0.2 (0.2-1.0) mg/dL Ur Leukocyte Esterase Negative (NEGATIVE) Urine Opiates Screen Negative (NEGATIVE) Ur Oxycodone Screen Negative (NEGATIVE) Urine Methadone Screen Negative (NEGATIVE) Ur Barbiturates Screen Negative (NEGATIVE) U Tricyclic Antidepress Negative (NEGATIVE) Ur Phencyclidine Scrn Negative (NEGATIVE) Ur Amphetamine Screen Negative (NEGATIVE) U Methamphetamines Scrn Negative (NEGATIVE) Urine MDMA Screen Negative (NEGATIVE) U Benzodiazepines Scrn Negative (NEGATIVE) Urine Cocaine Screen Negative (NEGATIVE) U Marijuana (THC) Screen Negative (NEGATIVE) Ethyl Alcohol (0) mg/dL 02/16/20 02/16/20 02/16/20 Range/Units 15:52 15:52 15:52 WBC (5.0-10.0) 10^3/uL RBC (4.2-5.4) 10^6/uL Hgb (12.0-16.0) g/dL Hct (37.0-47.0) % MCV (80-100) fL MCH (27.0-34.0) pg MCHC (33.0-35.0) g/dL Plt Count (150-450) 10^3/uL Neut % (Auto) (42.2-75.2) % Lymph % (Auto) (20.5-50.1) % [place] % (Auto) (2-8) % Eos % (Auto) (1.0-3.0) % Baso % (Auto) (0.0-1.0) % Sodium 130 L (136-145) mmol/L Potassium 4.8 (3.5-5.1) mmol/L Chloride 96 L (98-107) mmol/L Carbon Dioxide 24 (21-32) mmol/L Anion Gap 14.8 H (7-13) mEq/L BUN 18 (7-18) mg/dL Creatinine 1.36 H (0.55-1.02) mg/dL Est Cr Clr Drug Dosing 40.67 mL/min Estimated GFR (MDRD) 40 BUN/Creatinine Ratio 13.2 (No establ ref range) Glucose 180 H (74-99) mg/dL Lactic Acid 1.8 (0.4-2.0) mmol/L Calcium 8.5 (8.5-10.1) mg/dL Total Bilirubin 0.4 (0.2-1.0) mg/dL AST 15 (15-37) U/L ALT 32 (14-59) U/L Alkaline Phosphatase 158 H (46-116) U/L Troponin I < 0.017 (0.000-0.056) ng/mL C-Reactive Protein 1.0 H (0.0-0.9) mg/dL Total Protein 6.5 (6.4-8.2) g/dL Albumin 2.9 L (3.4-5.0) g/dL Globulin 3.6 Albumin/Globulin Ratio 0.81 Urine Color (YELLOW) Urine Appearance (CLEAR) Urine pH (5.0-9.0) Ur Specific [place] (1.005-1.030) Urine Protein (NEGATIVE) Urine Glucose (UA) (NEGATIVE) Urine Ketones (NEGATIVE) Urine Occult Blood (NEGATIVE) Urine Nitrite (NEGATIVE) Urine Bilirubin (NEGATIVE) Urine Urobilinogen (0.2-1.0) mg/dL Ur Leukocyte Esterase (NEGATIVE) Urine Opiates Screen (NEGATIVE) Ur Oxycodone Screen (NEGATIVE) Urine Methadone Screen (NEGATIVE) Ur Barbiturates Screen (NEGATIVE) U Tricyclic Antidepress (NEGATIVE) Ur Phencyclidine Scrn (NEGATIVE) Ur Amphetamine Screen (NEGATIVE) U Methamphetamines Scrn (NEGATIVE) Urine MDMA Screen (NEGATIVE) U Benzodiazepines Scrn (NEGATIVE) Urine Cocaine Screen (NEGATIVE) U Marijuana (THC) Screen (NEGATIVE) Ethyl Alcohol < 3 (0) mg/dL - Re-Assessments/Exams Free Text/Narrative Re-Assessment/Exam: 02/16/20 17:00 Hgb chronically low, stable for patient at 8.5 CXR revealed persistent COVID from recent infection (01/01/20). Departure - Departure Time of Disposition: 17:08 Disposition: Home, Self-Care 01 Clinical Impression: Weakness Anemia Qualifiers: Anemia type: B12 deficiency Vitamin B12 deficiency anemia type: unspecified B12 deficiency Qualified Code(s): D51.9 - Vitamin B12 deficiency anemia, unspecified - Discharge Information *PRESCRIPTION DRUG MONITORING PROGRAM REVIEWED*: Not Applicable *COPY OF PRESCRIPTION DRUG MONITORING REPORT IN PATIENT CRISTINO: Not Applicable Forms: ED Department Discharge Additional Instructions: Follow up with Dr. Duran regarding findings from your recent EGD. Return to clinic or ED with fatigue associated with chest pain, shortness of breath, fever, or dark tarry stools. Sepsis Event Note (ED) - Evaluation Sepsis Screening Result: No Definite Risk - Focused Exam Vital Signs: Vital Signs Temp Pulse Resp BP Pulse Ox 02/16/20 15:24 97.6 F 86 18 150/67 H 97 - My Orders Last 24 Hours: My Active Orders 02/16/20 15:29 EKG Documentation Completion [RC] STAT 02/16/20 15:33 UA W/MICROSCOPIC [URIN] Stat Isolation [COMM] Routine - Assessment/Plan Last 24 Hours: My Active Orders 02/16/20 15:29 EKG Documentation Completion [RC] STAT 02/16/20 15:33 UA W/MICROSCOPIC [URIN] Stat Isolation [COMM] Routine
[2020-02-16 16:21] LABS: ANION GAP 14.8 mEq/L (7-13); CHLORIDE,CL 96 mmol/L (98-107); SODIUM,NA 130 mmol/L (136-145)
--- NOTE | 2020-02-16 17:05 | CR ---
EXAMINATION: Chest 1V Frontal SEX: Female AGE: 59 years CLINICAL HISTORY: 59-year-old female complaining of CHEST PAIN. Comparison chest x-ray 24 February 2018. INTERPRETATION: Abnormal. 1. Patchy new density (compared to January 2018) involving the right middle, right lower and left lower lobes may reflect atelectasis associated with less than optimal inspiratory effort, however, peripheral "groundglass" infiltrates typical of COVID infection are differential consideration. Clinical? 2. Normal cardiac silhouette. No pulmonary vascular congestion, cephalization of flow, alveolar edema or dependent pleural fluid accumulation (effusions). 3. No new lung mass or hilar lymphadenopathy. 4. No pneumothorax or pneumomediastinum.
== END 2020-02-16 17:13 | disposition home or self-care (01) ==
LOC: DL.ED 15:11
DX: D51.9 Vitamin B12 deficiency anemia, unspecified (principal); R53.1 Weakness; I10 Essential (primary) hypertension; J45.909 Unspecified asthma, uncomplicated; E11.9 Type 2 diabetes mellitus without complications; E78.00 Pure hypercholesterolemia, unspecified; Z79.899 Other long term (current) drug therapy; Z79.82 Long term (current) use of aspirin; Z79.4 Long term (current) use of insulin; Z88.1 Allergy status to other antibiotic agents; Z88.6 Allergy status to analgesic agent
CPT/HCPCS: 36415; 71045; 80053; 80305-QW; 80307; 81001; 83605; 84484; 85025; 86140; 87804; 93005; 93010; 99283; 99285-25

== ENCOUNTER 2020-03-23 16:48 | Emergency (ER) | payer MEDICAID ==
[2020-03-23 16:58] VITALS: PULSE 90
[2020-03-23 17:02] VITALS: BP 123/52
--- NOTE | 2020-03-23 17:46 | EDM.PDOC ---
ED HPI GENERAL MEDICAL PROBLEM - General Chief Complaint: General Stated Complaint: ACHES AND PAINS Time Seen by Provider: 03/23/20 17:20 Source of Information: Reports: Patient, RN, RN Notes Reviewed History Limitations: Reports: No Limitations - History of Present Illness INITIAL COMMENTS - FREE TEXT/NARRATIVE: Patient presents to the ED via personal vehicle with complaints of generalized fatigue and muscle aches. She states her symptoms began yesterday morning and progressively worsened in the time. She does note a history of anemia and was treated for a GI bleed this past year; she is undergoing a bone marrow biopsy on 03/30/2020. She denies any sources of injuries and has not sustained a recent fall. She denies headache, vision changes, chest pain/pressure, palpitations, shortness of breath, dyspepsia, nausea, vomiting, diarrhea, melena, or hematochezia. She does attest to anorexia and fever with shaking chills; her Tmax last night was 102 which did respond to one dose of Tylenol 650mg. She has not checked her temperature this morning. The patient states she was positive for COVID in November of this year. She denies tobacco, alcohol, or recreational drug use. Generalized Pain Score (Numeric/FACES): 9 - Related Data Allergies Allergy/AdvReac Type Severity Reaction Status Date / Time clindamycin Allergy Rash Verified 03/23/20 16:53 tramadol Allergy Vomiting Verified 03/23/20 16:53 Home Meds: Home Meds Insulin Detemir [Levemir Flexpen] 30 units SUBCUT DAILY 04/09/13 [History] Montelukast Sodium 10 mg PO DAILY 04/09/13 [History] atorvaSTATin Calcium [Atorvastatin Calcium] 40 mg PO DAILY 04/09/13 [History] glyBURIDE [Glyburide] 10 mg PO BID 04/09/13 [History] metFORMIN HCl [Metformin HCl] 1,000 mg PO BID 04/09/13 [History] Aspirin [Halfprin] 81 mg PO DAILY 03/16/18 [History] Ferrous Gluconate 324 mg PO DAILY 03/16/18 [History] Fluocinonide 30 gm TP BID 03/16/18 [History] Fluticasone Propionate [Flonase] 1 sprays NASBOTH BID 03/16/18 [History] Fluticasone/Salmeterol [Advair 250-50] 2 puff IH DAILY PRN 03/16/18 [History] Lisinopril 40 mg PO DAILY 03/16/18 [History] Loratadine [Claritin] 10 mg PO DAILY 03/16/18 [History] Menthol/Camphor [Anti-Itch Lotion] 1 applic TOP TID 03/16/18 [History] Metoprolol Succinate [Toprol XL] 25 mg PO DAILY 03/16/18 [History] Saxagliptin HCl [Onglyza] 5 mg PO DAILY 03/16/18 [History] hydrOXYzine HCL [hydrOXYzine] 25 mg PO BEDTIME PRN 03/16/18 [History] Past Medical History HEENT History: Reports: Impaired Vision Cardiovascular History: Reports: High Cholesterol, Hypertension Respiratory History: Reports: Asthma, Bronchitis, Recurrent Gastrointestinal History: Reports: Cholelithiasis Genitourinary History: Reports: None 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 - Infectious Disease History Infectious Disease History: Reports: None, Novel Coronavirus - Past Surgical History Head Surgeries/Procedures: Reports: None GI Surgical History: Reports: Appendectomy, Cholecystectomy Social & Family History - Family History Family Medical History: No Pertinent Family History - Tobacco Use Tobacco Use Status *Q: Never Tobacco User Second Hand Smoke Exposure: No - Caffeine Use Caffeine Use: Reports: None Other Caffeine Use: 1 cup/day - Recreational Drug Use Recreational Drug Use: No ED ROS GENERAL - Review of Systems Review Of Systems: Comprehensive ROS is negative, except as noted in HPI. ED EXAM, GENERAL - Physical Exam Exam: See Below Exam Limited By: No Limitations General Appearance: Alert, Mild Distress Eye Exam: Bilateral Eye: EOMI, Normal Inspection, PERRL Ears: Normal External Exam, Normal Canal, Hearing Grossly Normal, Normal TMs Ear Exam: Bilateral Ear: Auricle Normal, Canal Normal, TM normal Nose: Normal Inspection, Normal Mucosa. No: Nasal Tenderness, Nasal Swelling Throat/Mouth: Normal Voice, No Airway Compromise, Other (Dry mucous membranes) Head: Atraumatic, Normocephalic Neck: Normal Inspection, Supple, Non-Tender. No: Lymphadenopathy (L), Lymphadenopathy (R) Respiratory/Chest: No Accessory Muscle Use, Chest Non-Tender, Rales (To right upper and lower lobe) Cardiovascular: No Edema, No Gallop, No JVD, No Murmur, No Rub, Tachycardia Peripheral Pulses: 2+: Radial (L), Radial (R) GI/Abdominal: Normal Bowel Sounds, Soft, Non-Tender, No Distention, No Mass, Pelvis Stable Back Exam: Normal Inspection, Full Range of Motion Extremities: Normal Inspection, Normal Range of Motion, Non-Tender, No Pedal Edema, Normal Capillary Refill Neurological: Alert, Oriented, CN II-XII Intact, Normal Cognition, Normal Gait, No Motor/Sensory Deficits Psychiatric: Depressed Mood, Flat Affect Skin Exam: Warm, Dry, Intact, Normal Color, No Rash. No: Ecchymosis, Erythema, Mottled, Pallor, Petechiae Course - Vital Signs Last Recorded V/S: Last Vital Signs Temp 98.2 F 03/23/20 16:56 Pulse 90 03/23/20 16:56 Resp 16 03/23/20 16:56 BP 123/52 L 03/23/20 16:56 Pulse Ox 97 03/23/20 16:56 - Orders/Labs/Meds Orders: Active Orders 24 hr Category Date Time Status CORONAVIRUS COVID-19 PCR PHL Stat Lab 03/23/20 18:59 Ordered CULTURE BLOOD [BC] Stat Lab 03/23/20 17:29 Received Sodium Chloride 0.9% [Normal Saline] 1,000 ml Med 03/23/20 18:25 Active IV .BOLUS Medication Orders Sodium Chloride (Normal Saline) 1,000 mls @ 999 mls/hr IV .BOLUS ONE Stop: 03/23/20 19:25 Last Admin: 03/23/20 18:33 Dose: 999 mls/hr Documented by: [id number] Labs: Laboratory Tests 03/23/20 03/23/20 03/23/20 Range/Units 17:29 17:29 17:29 WBC 24.5 H (5.0-10.0) 10^3/uL RBC 2.81 L (4.2-5.4) 10^6/uL Hgb 8.1 L (12.0-16.0) g/dL Hct 24.7 L (37.0-47.0) % MCV 87.9 (80-100) fL MCH 28.8 (27.0-34.0) pg MCHC 32.8 L (33.0-35.0) g/dL Plt Count 283 (150-450) 10^3/uL Neut % (Auto) 88.6 H (42.2-75.2) % Lymph % (Auto) 2.9 L (20.5-50.1) % [place] % (Auto) 8.2 H (2-8) % Eos % (Auto) 0.0 L (1.0-3.0) % Baso % (Auto) 0.3 (0.0-1.0) % Add Manual Diff Yes Neutrophils % (Manual) 89 H (42-75) % Band Neutrophils % 1 % Lymphocytes % (Manual) 3 L (20-50) % Monocytes % (Manual) 5 (2-8) % Basophils % (Manual) 2 Sodium 127 L (136-145) mmol/L Potassium 4.1 (3.5-5.1) mmol/L Chloride 93 L (98-107) mmol/L Carbon Dioxide 23 (21-32) mmol/L Anion Gap 15.1 H (7-13) mEq/L BUN 25 H (7-18) mg/dL Creatinine 1.32 H (0.55-1.02) mg/dL Est Cr Clr Drug Dosing 41.90 mL/min Estimated GFR (MDRD) 41 BUN/Creatinine Ratio 18.9 (No establ ref range) Glucose 245 H (74-99) mg/dL Lactic Acid 1.9 (0.4-2.0) mmol/L Calcium 9.1 (8.5-10.1) mg/dL Total Bilirubin 0.6 (0.2-1.0) mg/dL AST 9 L (15-37) U/L ALT 30 (14-59) U/L Alkaline Phosphatase 97 (46-116) U/L Total Protein 6.5 (6.4-8.2) g/dL Albumin 2.6 L (3.4-5.0) g/dL Globulin 3.9 Albumin/Globulin Ratio 0.67 Meds: Medications Generic Name Dose Route Start Last Admin Trade Name Freq PRN Reason Stop Dose Admin Sodium Chloride 1,000 mls @ 999 mls/hr 03/23/20 18:25 03/23/20 18:33 Normal Saline IV 03/23/20 19:25 999 mls/hr .BOLUS ONE Administration Discontinued Medications Generic Name Dose Route Start Last Admin Trade Name Jett PRN Reason Stop Dose Admin Azithromycin 500 mg 03/23/20 18:15 03/23/20 18:33 Zithromax PO 03/23/20 18:16 500 mg ONETIME ONE Administration Piperacillin Sod/Tazobactam 100 mls @ 200 mls/hr 03/23/20 18:14 03/23/20 18:3 3 Sod 3.375 gm/ Sodium Chloride IV 03/23/20 18:43 200 mls/hr ONETIME ONE Administration - Radiology Interpretation Free Text/Narrative:: [facility] [place] [facility] Final Radiology Report Call: [phone] assistance Online chat: [email or web address] Name: LAVELL SANON Age: 59Years F Date: 03/23/2020 SSN: -- : 1960 Study: CR CHEST 2V Requesting Physician: Viktoriya Allen Images: 2 Addl Studies: Provided Clinical History: Rales to right; Fever; Fatigue Contrast: Contrast Medium: Contrast Amount: Contrast Method: CONFIDENTIALITY STATEMENT This report is intended only for use by the referring physician, and only in accordance with law. If you received this in error, call [phone]. Page 1 of 1 PROCEDURE INFORMATION: Exam: XR Chest, 2 Views Exam date and time: 03/23/2020 5:37 PM Age: 59 years old Clinical indication: Fever; Additional info: Rales to right; Fever; Fatigue TECHNIQUE: Imaging protocol: XR of the chest Views: 2 views. COMPARISON: CR Chest 1V Frontal 02/16/2020 3:52 PM FINDINGS: Lungs: COPD with bibasilar areas of scarring or fibrosis. Right upper lobe area of atelectasis. Persistent bilateral lung infiltrates although improved since the prior study dated 01/01/2020. Pleural space: Unremarkable. No pleural effusion. No pneumothorax. Heart/Mediastinum: Unremarkable. No cardiomegaly. Bones/joints: Unremarkable. IMPRESSION: Improvement with decrease in the bilateral lung infiltrates but still present predominantly in the lung bases when compared to the prior study dated 01/01/2020. When compared to the prior study dated 02/16/2020, the infiltrates have remained relatively stable Thank you for allowing us to participate in the care of your patient. Dictated and Authenticated by: Korey Zamarripa MD 03/23/2020 6:06 PM Central Time ([place] & [place]) - Re-Assessments/Exams Free Text/Narrative Re-Assessment/Exam: 03/23/20 Given persistent pneumonia in bilateral lower lobes, now with leukocytosis, will transfer patient to [facility] in [place] for IV antibiotics and rehydration. Dr. Blakely accepting; he does request we repeat COVID screen prior to sending patient. Patient verbalized understanding and agreement with the plan of care. Departure - Departure Time of Disposition: 19:19 Disposition: DC/Tfer to Acute Hospital 02 Condition: Good Clinical Impression: Pneumonia - Discharge Information Forms: ED Department Discharge, Interfacility Transfer [facility] Sepsis Event Note (ED) - Evaluation Sepsis Screening Result: No Definite Risk - Focused Exam Vital Signs: Vital Signs Temp Pulse Resp BP Pulse Ox 03/23/20 16:56 98.2 F 90 16 123/52 L 97 - My Orders Last 24 Hours: My Active Orders 03/23/20 17:29 CULTURE BLOOD [BC] Stat 03/23/20 18:25 Sodium Chloride 0.9% [Normal Saline] 1,000 ml IV .BOLUS 03/23/20 18:59 CORONAVIRUS COVID-19 PCR PHL Stat - Assessment/Plan Last 24 Hours: My Active Orders 03/23/20 17:29 CULTURE BLOOD [BC] Stat 03/23/20 18:25 Sodium Chloride 0.9% [Normal Saline] 1,000 ml IV .BOLUS 03/23/20 18:59 CORONAVIRUS COVID-19 PCR PHL Stat
[2020-03-23 17:55] LABS: ANION GAP 15.1 mEq/L (7-13)
--- NOTE | 2020-03-23 18:06 | CR ---
PROCEDURE INFORMATION: Exam: XR Chest, 2 Views Exam date and time: 03/23/2020 5:37 PM Age: 59 years old Clinical indication: Fever; Additional info: Rales to right; Fever; Fatigue TECHNIQUE: Imaging protocol: XR of the chest Views: 2 views. COMPARISON: CR Chest 1V Frontal 02/16/2020 3:52 PM FINDINGS: Lungs: COPD with bibasilar areas of scarring or fibrosis. Right upper lobe area of atelectasis. Persistent bilateral lung infiltrates although improved since the prior study dated 01/01/2020. Pleural space: Unremarkable. No pleural effusion. No pneumothorax. Heart/Mediastinum: Unremarkable. No cardiomegaly. Bones/joints: Unremarkable. IMPRESSION: Improvement with decrease in the bilateral lung infiltrates but still present predominantly in the lung bases when compared to the prior study dated 01/01/2020. When compared to the prior study dated 02/16/2020, the infiltrates have remained relatively stable
[2020-03-23] MEDS ORDERED: Piperacillin/Tazobactam 3.375 GM in Sodium Chloride 0.9% 100 ML IV ONE (18:14)
[2020-03-23] MEDS ORDERED: Azithromycin 250 MG Tab PO ONE (18:15)
[2020-03-23] MEDS ORDERED: Sodium Chloride 0.9% 1,000 ML IV ONE (18:25)
== END 2020-03-23 19:58 ==
LOC: DL.ED 16:48
DX: J18.9 Pneumonia, unspecified organism (principal); E11.9 Type 2 diabetes mellitus without complications; D72.829 Elevated white blood cell count, unspecified; E78.00 Pure hypercholesterolemia, unspecified; I10 Essential (primary) hypertension; J45.909 Unspecified asthma, uncomplicated; Z20.828 Contact with and (suspected) exposure to other viral communicable diseases; Z88.1 Allergy status to other antibiotic agents; Z88.5 Allergy status to narcotic agent; Z79.82 Long term (current) use of aspirin; Z79.4 Long term (current) use of insulin; Z79.899 Other long term (current) drug therapy; Z86.19 Personal history of other infectious and parasitic diseases
CPT/HCPCS: 36415; 71046; 80053; 83605; 85025; 87040; 87635; 96365; 99285; A9270; J2543; J7030; J7050; U0002

== ENCOUNTER 2020-07-06 09:48 | Inpatient (IN) | payer MEDICAID ==
--- NOTE | 2020-07-06 09:58 | EDM.PDOC ---
ED HPI GENERAL MEDICAL PROBLEM - General Chief Complaint: Skin Complaint Stated Complaint: SENT FROM S Time Seen by Provider: 07/06/20 09:58 Source of Information: Reports: Patient, RN, RN Notes Reviewed History Limitations: Reports: No Limitations - History of Present Illness INITIAL COMMENTS - FREE TEXT/NARRATIVE: Pt sent from [facility] by POV by Crystal Hdez DEVELOPMENTAL SPECIALIST for evaluation and treatment of an abscess to the right lateral thoracic chest wall. Pt states she noticed a tender bump in the area on Friday, and it increased to become very large, hot, red, and swollen. Pt states she hasn't felt well in general since the swelling became red and hot. She does not think that she has had any fever. Pt has Hx of skin abscess which she believed were staph infections, but she is not sure if she has had MRSA or not. Hx of DM. Onset: Gradual Duration: Constant, Getting Worse Location: Reports: Back Quality: Reports: Ache, Pressure, Throbbing Severity: Severe Improves with: Reports: None Worsens with: Reports: Other (Touch/palpation), Movement Associated Symptoms: Reports: No Other Symptoms - Related Data Allergies Allergy/AdvReac Type Severity Reaction Status Date / Time clindamycin Allergy Rash Verified 03/23/20 16:53 tramadol Allergy Vomiting Verified 03/23/20 16:53 Home Meds: Home Meds Insulin Detemir [Levemir Flexpen] 30 units SUBCUT DAILY 04/09/13 [History] Montelukast Sodium 10 mg PO DAILY 04/09/13 [History] atorvaSTATin Calcium [Atorvastatin Calcium] 40 mg PO DAILY 04/09/13 [History] glyBURIDE [Glyburide] 10 mg PO BID 04/09/13 [History] metFORMIN HCl [Metformin HCl] 1,000 mg PO BID 04/09/13 [History] Aspirin [Halfprin] 81 mg PO DAILY 03/16/18 [History] Ferrous Gluconate 324 mg PO DAILY 03/16/18 [History] Fluocinonide 30 gm TP BID 03/16/18 [History] Fluticasone Propionate [Flonase] 1 sprays NASBOTH BID 03/16/18 [History] Fluticasone/Salmeterol [Advair 250-50] 2 puff IH DAILY PRN 03/16/18 [History] Lisinopril 40 mg PO DAILY 03/16/18 [History] Loratadine [Claritin] 10 mg PO DAILY 03/16/18 [History] Menthol/Camphor [Anti-Itch Lotion] 1 applic TOP TID 03/16/18 [History] Metoprolol Succinate [Toprol XL] 25 mg PO DAILY 03/16/18 [History] Saxagliptin HCl [Onglyza] 5 mg PO DAILY 03/16/18 [History] hydrOXYzine HCL [hydrOXYzine] 25 mg PO BEDTIME PRN 03/16/18 [History] Past Medical History HEENT History: Reports: Impaired Vision Cardiovascular History: Reports: High Cholesterol, Hypertension Respiratory History: Reports: Asthma, Bronchitis, Recurrent Gastrointestinal History: Reports: Cholelithiasis Genitourinary History: Reports: None 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 - Infectious Disease History Infectious Disease History: Reports: None, Novel Coronavirus - Past Surgical History Head Surgeries/Procedures: Reports: None GI Surgical History: Reports: Appendectomy, Cholecystectomy Social & Family History - Family History Family Medical History: No Pertinent Family History - Caffeine Use Caffeine Use: Reports: None Other Caffeine Use: 1 cup/day - Living Situation & Occupation Living situation: Reports: with Family ED ROS GENERAL - Review of Systems Review Of Systems: Comprehensive ROS is negative, except as noted in HPI. ED EXAM, SKIN/RASH Exam: See Below Exam Limited By: No Limitations General Appearance: Alert, No Apparent Distress, Anxious Nose: Normal Inspection, Normal Mucosa Throat/Mouth: Normal Lips, Normal Voice, No Airway Compromise Head: Atraumatic, Normocephalic Neck: Normal Inspection, Supple, Non-Tender, Full Range of Motion. No: Lymphadenopathy (L), Lymphadenopathy (R) Respiratory/Chest: No Respiratory Distress, Lungs Clear, Normal Breath Sounds, No Accessory Muscle Use, Chest Non-Tender Cardiovascular: Regular Rate, Rhythm, Tachycardia GI/Abdominal: Normal Bowel Sounds, Soft, Non-Tender, No Organomegaly, No Distention, No Abnormal Bruit, No Mass Back Exam: Other (Right lateral thoracic chest wall has a firm, tender, erythematous swelling 15cm x 10cm with central excoriation and fluctuance, no spontaneous drainage). No: CVA Tenderness (L), CVA Tenderness (R) Extremities: Normal Inspection Neurological: Alert, Oriented, No Motor/Sensory Deficits Psychiatric: Normal Mood Skin: Warm, Dry ED SKIN PROCEDURES - I&D Site: Right lateral thoracic chest wall Skin Prep: Providone-Iodine (Betadine), Sterile Drape Local Anesthesia: Lidocaine: 1% Plain Local Anesthetic Volume: Other (10cc) Area Incised With: 11 Blade Drainage: Purulent, Large Amount Probed to Break Up Loculations: Yes Packed With: 1/2 in. Iodoform Sterile Dressinx4(s) Complications: No Course - Vital Signs Last Recorded V/S: Last Vital Signs Temp 97.8 F 07/06/20 10:30 Pulse 89 07/06/20 10:30 Resp 16 07/06/20 10:30 BP 146/59 H 07/06/20 10:30 Pulse Ox 96 07/06/20 10:30 - Orders/Labs/Meds Orders: Active Orders 24 hr Category Date Time Status Peripheral IV Care [RC] . DIRECTED Care 07/06/20 10:16 Active CORONAVIRUS COVID-19 RAPID [MOLEC] Stat Lab 07/06/20 11:29 Received CULTURE BLOOD [BC] Stat Lab 07/06/20 10:28 Received CULTURE BLOOD [BC] Stat Lab 07/06/20 10:28 Received CULTURE WOUND [RM] Stat Lab 07/06/20 11:11 Received Sodium Chloride 0.9% [Normal Saline] 1,000 ml Med 07/06/20 11:45 Active IV .BOLUS Sodium Chloride 0.9% [Saline Flush] Med 07/06/20 10:15 Active 10 ml FLUSH ASDIRECTED PRN Vancomycin 1 gm Med 07/06/20 10:55 Active Sodium Chloride 0.9% [Normal Saline (AdvBag)] 250 ml IV ONETIME Blood Culture x2 Reflex Set [OM.PC] Stat Oth 07/06/20 10:15 Ordered Peripheral IV Insertion Adult [OM.PC] Stat Oth 07/06/20 10:16 Ordered Labs: Laboratory Tests 07/06/20 07/06/2021 Range/Units 10:28 10:28 10:28 WBC 15.1 H (5.0-10.0) 10^3/uL RBC 3.15 L (4.2-5.4) 10^6/uL Hgb 9.2 L (12.0-16.0) g/dL Hct 28.9 L (37.0-47.0) % MCV 91.7 D (80-100) fL MCH 29.2 (27.0-34.0) pg MCHC 31.8 L (33.0-35.0) g/dL Plt Count 455 H D (150-450) 10^3/uL Neut % (Auto) 86.4 H (42.2-75.2) % Lymph % (Auto) 4.8 L (20.5-50.1) % Crosby % (Auto) 7.8 (2-8) % Eos % (Auto) 0.7 L (1.0-3.0) % Baso % (Auto) 0.3 (0.0-1.0) % Add Manual Diff Yes Neutrophils % (Manual) 87 H (42-75) % Band Neutrophils % 1 % Lymphocytes % (Manual) 7 L (20-50) % Monocytes % (Manual) 5 (2-8) % Sodium 134 L (136-145) mmol/L Potassium 4.2 (3.5-5.1) mmol/L Chloride 100 (98-107) mmol/L Carbon Dioxide 23 (21-32) mmol/L Anion Gap 15.2 H (7-13) mEq/L BUN 14 (7-18) mg/dL Creatinine 1.42 H (0.55-1.02) mg/dL Est Cr Clr Drug Dosing TNP Estimated GFR (MDRD) 38 BUN/Creatinine Ratio 9.9 (No establ ref range) Glucose 272 H (74-99) mg/dL Lactic Acid 1.1 (0.4-2.0) mmol/L Calcium 8.3 L (8.5-10.1) mg/dL Total Bilirubin 0.3 (0.2-1.0) mg/dL AST 7 L (15-37) U/L ALT 26 (14-59) U/L Alkaline Phosphatase 123 H (46-116) U/L C-Reactive Protein 25.8 H (0.0-0.9) mg/dL Total Protein 6.3 L (6.4-8.2) g/dL Albumin 2.2 L (3.4-5.0) g/dL Globulin 4.1 Albumin/Globulin Ratio 0.54 - Re-Assessments/Exams Free Text/Narrative Re-Assessment/Exam: 07/06/[address] Aguilera. He evaluated the pt in ER. Dr. Aguilera did not feel the pt needed to go to the OR for I&D, and that simple I&D in the ER would be sufficient. 07/06/20 11:46 Plan to admit pt for abscess s/p I&D with sepsis. WBC 15,000, HR on exam 110. Departure - Departure Time of Disposition: 11:47 (admitted to Dr. Alcaraz) Disposition: Admitted As Inpatient 64 Condition: Fair Clinical Impression: Abscess of chest wall Sepsis Qualifiers: Sepsis type: sepsis due to unspecified organism Sepsis acute organ dysfunction status: unspecified Qualified Code(s): A41.9 - Sepsis, unspecified organism - Discharge Information *PRESCRIPTION DRUG MONITORING PROGRAM REVIEWED*: Not Applicable *COPY OF PRESCRIPTION DRUG MONITORING REPORT IN PATIENT CRISTINO: Not Applicable Forms: ED Department Discharge Sepsis Event Note (ED) - Focused Exam Vital Signs: Vital Signs Temp Pulse Resp BP Pulse Ox 07/06/20 10:30 97.8 F 89 16 146/59 H 96 - My Orders Last 24 Hours: My Active Orders 07/06/20 10:15 Sodium Chloride 0.9% [Saline Flush] 10 ml FLUSH ASDIRECTED PRN Blood Culture x2 Reflex Set [OM.PC] Stat 07/06/20 10:16 Peripheral IV Care [RC] . DIRECTED Peripheral IV Insertion Adult [OM.PC] Stat 07/06/20 10:28 CULTURE BLOOD [BC] Stat CULTURE BLOOD [BC] Stat 07/06/20 10:55 Vancomycin 1 gm Sodium Chloride 0.9% [Normal Saline (AdvBag)] 250 ml IV ONETIME 07/06/20 11:11 CULTURE WOUND [RM] Stat 07/06/20 11:29 CORONAVIRUS COVID-19 RAPID [MOLEC] Stat 07/06/20 11:45 Sodium Chloride 0.9% [Normal Saline] 1,000 ml IV .BOLUS - Assessment/Plan Last 24 Hours: My Active Orders 07/06/20 10:15 Sodium Chloride 0.9% [Saline Flush] 10 ml FLUSH ASDIRECTED PRN Blood Culture x2 Reflex Set [OM.PC] Stat 07/06/20 10:16 Peripheral IV Care [RC] . DIRECTED Peripheral IV Insertion Adult [OM.PC] Stat 07/06/20 10:28 CULTURE BLOOD [BC] Stat CULTURE BLOOD [BC] Stat 07/06/20 10:55 Vancomycin 1 gm Sodium Chloride 0.9% [Normal Saline (AdvBag)] 250 ml IV ONETIME 07/06/20 11:11 CULTURE WOUND [RM] Stat 07/06/20 11:29 CORONAVIRUS COVID-19 RAPID [MOLEC] Stat 07/06/20 11:45 Sodium Chloride 0.9% [Normal Saline] 1,000 ml IV .BOLUS
[2020-07-06] MEDS ORDERED: Lidocaine 1% 30 ML SDV INJECT ONE (10:20)
[2020-07-06] MEDS ORDERED: fentaNYL 100 MCG/2 ML SDV IVPUSH ONE (10:21)
[2020-07-06] MEDS ORDERED: Ondansetron 4 MG/2 ML SDV IV ONE (10:21)
[2020-07-06] MEDS ORDERED: diphenhydrAMINE 50 MG/ML SDV IVPUSH ONE (10:55)
[2020-07-06] MEDS: Sodium Chloride 0.9% 10 ML Syringe FLUSH PRN (11:03)
[2020-07-06 11:04] LABS: ANION GAP 15.2 mEq/L (7-13); CHLORIDE,CL 100 mmol/L (98-107); SODIUM,NA 134 mmol/L (136-145)
[2020-07-06] MEDS ORDERED: Sodium Chloride 0.9% 1,000 ML IV ONE (11:45)
[2020-07-06] MEDS ORDERED: hydrOXYzine HCl 25 MG Tab PO PRN (13:46)
[2020-07-06] MEDS ORDERED: Formoterol/Mometasone 200-5 MCG 8.8 GM Inhaler IH PRN (13:46)
[2020-07-06] MEDS ORDERED: Glucagon,Human Recombinant 1 MG Vial IM PRN (13:49)
[2020-07-06] MEDS ORDERED: 50% Dextrose in Water 50 ML Syringe IV PRN (13:49)
[2020-07-06] MEDS ORDERED: MENTHOL TOP SCH (14:00)
[2020-07-06] MEDS ORDERED: CAMPHOR TOP SCH (14:00)
[2020-07-06] MEDS: Acetaminophen 325 MG Tab PO PRN ×2 (15:13→19:31)
[2020-07-06] MEDS: Insulin Lispro 100 Units/ML 3 ML Vial SUBCUT SCH ×2 (17:53→21:02)
--- NOTE | 2020-07-06 18:08 | PCM.HP ---
H&P History of Present Illness - General Date of Service: 07/06/20 Admit Problem/Dx: Admission Diagnosis/Problem Admission Diagnosis/Problem Abscess of chest wall - History of Present Illness Initial Comments - Free Text/Narative: 59F w/ pmh HL, HT, asthma, cholelithiasis, anemia, DM2 p/w swollen mass in the right scapular region. Pt noticed a lump there 6 days ago. This has progressed in size and tenderness. She denies fever but has become generally unwell w/ nausea and vomiting yesterday. ER evaluation found a large abscess which was I/D and packed. Pt also met sepsis criteria and will be admitted for IV abx. Pt admits to two similar episodes w/ abscesses on her neck and left back. Right Back Pain Score (Numeric/FACES): 8 - Related Data Allergies/Adverse Reactions: Allergies Allergy/AdvReac Type Severity Reaction Status Date / Time clindamycin Allergy Rash Verified 07/06/20 12:32 tramadol Allergy Vomiting Verified 07/06/20 12:32 Home Medications: Home Meds Insulin Detemir [Levemir Flexpen] 30 units SUBCUT DAILY 04/09/13 [History] Montelukast Sodium 10 mg PO DAILY 04/09/13 [History] atorvaSTATin Calcium [Atorvastatin Calcium] 40 mg PO DAILY 04/09/13 [History] glyBURIDE [Glyburide] 10 mg PO BID 04/09/13 [History] metFORMIN HCl [Metformin HCl] 1,000 mg PO BID 04/09/13 [History] Aspirin [Halfprin] 81 mg PO DAILY 03/16/18 [History] Ferrous Gluconate 324 mg PO DAILY 03/16/18 [History] Fluocinonide 30 gm TP BID 03/16/18 [History] Fluticasone Propionate [Flonase] 1 sprays NASBOTH BID 03/16/18 [History] Fluticasone/Salmeterol [Advair 250-50] 2 puff IH DAILY PRN 03/16/18 [History] Lisinopril 40 mg PO DAILY 03/16/18 [History] Loratadine [Claritin] 10 mg PO DAILY 03/16/18 [History] Menthol/Camphor [Anti-Itch Lotion] 1 applic TOP TID 03/16/18 [History] Metoprolol Succinate [Toprol XL] 25 mg PO DAILY 03/16/18 [History] Saxagliptin HCl [Onglyza] 5 mg PO DAILY 03/16/18 [History] hydrOXYzine HCL [hydrOXYzine] 25 mg PO BEDTIME PRN 03/16/18 [History] Past Medical History HEENT History: Reports: Impaired Vision Cardiovascular History: Reports: High Cholesterol, Hypertension Respiratory History: Reports: Asthma, Bronchitis, Recurrent Gastrointestinal History: Reports: Cholelithiasis Genitourinary History: Reports: None 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 - Infectious Disease History Infectious Disease History: Reports: None, Novel Coronavirus - Past Surgical History Head Surgeries/Procedures: Reports: None GI Surgical History: Reports: Appendectomy, Cholecystectomy Social & Family History - Family History Family Medical History: No Pertinent Family History - Caffeine Use Caffeine Use: Reports: None Other Caffeine Use: 1 cup/day - Living Situation & Occupation Living situation: Reports: with Family H&P Review of Systems - Review of Systems: Review Of Systems: See Below General: Reports: Decreased Appetite. Denies: Fever, Chills HEENT: Denies: Headaches Pulmonary: Denies: Shortness of Breath, Wheezing Cardiovascular: Denies: Chest Pain, Palpitations Gastrointestinal: Denies: Abdominal Pain, Diarrhea Genitourinary: Denies: Dysuria Musculoskeletal: Denies: Neck Pain Skin: Denies: Jaundice Psychiatric: Denies: Confusion Neurological: Reports: Dizziness Hematologic/Lymphatic: Denies: Swollen Glands Exam - Exam Exam: See Below - Vital Signs Vital Signs: Last Vital Signs Temp 99.0 F 07/06/20 16:59 Pulse 88 07/06/20 16:59 Resp 20 07/06/20 16:59 BP 133/53 L 07/06/20 16:59 Pulse Ox 98 07/06/20 16:59 Weight: 154 lb 12.8 oz - Exam Quality Assessment: No: Supplemental Oxygen General: Alert, Oriented, Cooperative HEENT: Conjunctiva Clear Neck: Supple Lungs: Clear to Auscultation, Normal Respiratory Effort Cardiovascular: Regular Rate, Regular Rhythm GI/Abdominal Exam: Normal Bowel Sounds, Soft, Non-Tender, No Distention Back Exam: Other (packed incision on right scapula w/ surrounding area of ce llulitis, sero-sanguinous drainage) Skin: Warm, Dry Neurological: Normal Speech Neuro Extensive - Mental Status: Alert, Oriented x3, Normal Mood/Affect, Normal Cognition Psychiatric: Alert, Normal Affect, Normal Mood - Patient Data Lab Results Last 24 hrs: Laboratory Results - last 24 hr 07/06/20 07/06/20 07/06/20 Range/Units 10:28 10:28 10:28 WBC 15.1 H (5.0-10.0) 10^3/uL RBC 3.15 L (4.2-5.4) 10^6/uL Hgb 9.2 L (12.0-16.0) g/dL Hct 28.9 L (37.0-47.0) % MCV 91.7 D (80-100) fL MCH 29.2 (27.0-34.0) pg MCHC 31.8 L (33.0-35.0) g/dL Plt Count 455 H D (150-450) 10^3/uL Neut % (Auto) 86.4 H (42.2-75.2) % Lymph % (Auto) 4.8 L (20.5-50.1) % Knox % (Auto) 7.8 (2-8) % Eos % (Auto) 0.7 L (1.0-3.0) % Baso % (Auto) 0.3 (0.0-1.0) % Add Manual Diff Yes Neutrophils % (Manual) 87 H (42-75) % Band Neutrophils % 1 % Lymphocytes % (Manual) 7 L (20-50) % Monocytes % (Manual) 5 (2-8) % Sodium 134 L (136-145) mmol/L Potassium 4.2 (3.5-5.1) mmol/L Chloride 100 (98-107) mmol/L Carbon Dioxide 23 (21-32) mmol/L Anion Gap 15.2 H (7-13) mEq/L BUN 14 (7-18) mg/dL Creatinine 1.42 H (0.55-1.02) mg/dL Est Cr Clr Drug Dosing TNP Estimated GFR (MDRD) 38 BUN/Creatinine Ratio 9.9 (No establ ref range) Glucose 272 H (74-99) mg/dL POC Glucose (70-105) mg/dl Lactic Acid 1.1 (0.4-2.0) mmol/L Calcium 8.3 L (8.5-10.1) mg/dL Total Bilirubin 0.3 (0.2-1.0) mg/dL AST 7 L (15-37) U/L ALT 26 (14-59) U/L Alkaline Phosphatase 123 H (46-116) U/L C-Reactive Protein 25.8 H (0.0-0.9) mg/dL Total Protein 6.3 L (6.4-8.2) g/dL Albumin 2.2 L (3.4-5.0) g/dL Globulin 4.1 Albumin/Globulin Ratio 0.54 SARS CoV-2 RNA Rapid ROBERT (NEGATIVE) 07/06/20 07/06/20 07/06/20 Range/Units 11:29 12:46 17:06 WBC (5.0-10.0) 10^3/uL RBC (4.2-5.4) 10^6/uL Hgb (12.0-16.0) g/dL Hct (37.0-47.0) % MCV (80-100) fL MCH (27.0-34.0) pg MCHC (33.0-35.0) g/dL Plt Count (150-450) 10^3/uL Neut % (Auto) (42.2-75.2) % Lymph % (Auto) (20.5-50.1) % Knox % (Auto) (2-8) % Eos % (Auto) (1.0-3.0) % Baso % (Auto) (0.0-1.0) % Add Manual Diff Neutrophils % (Manual) (42-75) % Band Neutrophils % % Lymphocytes % (Manual) (20-50) % Monocytes % (Manual) (2-8) % Sodium (136-145) mmol/L Potassium (3.5-5.1) mmol/L Chloride (98-107) mmol/L Carbon Dioxide (21-32) mmol/L Anion Gap (7-13) mEq/L BUN (7-18) mg/dL Creatinine (0.55-1.02) mg/dL Est Cr Clr Drug Dosing Estimated GFR (MDRD) BUN/Creatinine Ratio (No establ ref range) Glucose (74-99) mg/dL POC Glucose 260 H 238 H (70-105) mg/dl Lactic Acid (0.4-2.0) mmol/L Calcium (8.5-10.1) mg/dL Total Bilirubin (0.2-1.0) mg/dL AST (15-37) U/L ALT (14-59) U/L Alkaline Phosphatase (46-116) U/L C-Reactive Protein (0.0-0.9) mg/dL Total Protein (6.4-8.2) g/dL Albumin (3.4-5.0) g/dL Globulin Albumin/Globulin Ratio SARS CoV-2 RNA Rapid ROBERT Negative (NEGATIVE) Result Diagrams: 07/06/20 10:28 07/06/20 10:28 Problem List Initiated/Reviewed/Updated: No Orders Last 24hrs: Active Orders 24 hr Category Date Time Status Patient Status [ADT] Routine ADT 07/06/20 13:38 Active Antiembolic Devices [RC] PER UNIT ROUTINE Care 07/06/20 13:45 Active Blood Glucose Check, Bedside [RC] WITHMEALSANDBED Care 07/06/20 14:56 Active Oxygen Therapy [RC] PRN Care 07/06/20 13:38 Active Peripheral IV Care [RC] . DIRECTED Care 07/06/20 10:16 Active Up ad Pearl [RC] ASDIRECTED Care 07/06/20 14:54 Active VTE/DVT Education [RC] PER UNIT ROUTINE Care 07/06/20 13:38 Active Vital Signs [RC] Q4H Care 07/06/20 13:38 Active Carbohydrate Counting [Consistent Carbohydrate Diet] [ Diet 07/06/20 Dinner Active DIET] CBC W/O DIFF,HEMOGRAM [HEME] AM Lab 07/07/20 05:11 Ordered COMPREHENSIVE METABOLIC PN,CMP [CHEM] AM Lab 07/07/20 05:11 Ordered CULTURE BLOOD [BC] Stat Lab 07/06/20 10:28 Received CULTURE BLOOD [BC] Stat Lab 07/06/20 10:28 Received CULTURE WOUND [RM] Stat Lab 07/06/20 11:11 Received MAGNESIUM [CHEM] AM Lab 07/07/20 05:11 Ordered PHOSPHORUS [CHEM] AM Lab 07/07/20 05:11 Ordered Acetaminophen [TylenoL] Med 07/06/20 13:38 Active 650 mg PO Q4H PRN Aspirin [Halfprin] Med 07/07/20 09:00 Active 81 mg PO DAILY Dextrose 50% in Water Med 07/06/20 13:49 Active 50 ml IV ASDIRECTED PRN Enoxaparin [Lovenox] Med 07/07/20 09:00 Active 40 mg SUBCUT DAILY Ferrous Sulfate Med 07/07/20 09:00 Active 325 mg PO DAILY Fluocinonide [Lidex 0.05% Crm] Med 07/06/20 21:00 Active 0 gm TOP BID Fluticasone Propionate [Flonase] Med 07/06/20 21:00 Active 0 gm NASBOTH BID Glucagon,Human Recombinant [GlucaGen] Med 07/06/20 13:49 Active 1 mg IM ASDIRECTED PRN Insulin Glarg,Human.Rec.Analog [LantUS] Med 07/07/20 09:00 Active 30 unit SUBCUT DAILY Insulin Lispro [HumaLOG] Med 07/06/20 18:00 Active See Protocol SUBCUT WITHMEALSANDBED Loratadine [Claritin] Med 07/07/20 09:00 Active 10 mg PO DAILY Menthol/Camphor [Anti-Itch Lotion] Med 07/06/20 14:00 Pending 1 applic TOP TID Metoprolol Succinate [Toprol XL] Med 07/07/20 09:00 Active 25 mg PO DAILY Mometasone/Formoterol [Dulera 200-5 MCG] Med 07/06/20 13:46 Active 2 puff IH DAILY PRN Montelukast [Singulair] Med 07/07/20 09:00 Active 10 mg PO DAILY Sodium Chloride 0.9% [Saline Flush] Med 07/06/20 10:15 Active 10 ml FLUSH ASDIRECTED PRN Vancomycin 1 gm Med 07/07/20 11:00 Active Sodium Chloride 0.9% [Normal Saline (AdvBag)] 250 ml IV Q24H atorvaSTATin [Lipitor] Med 07/07/20 09:00 Active 40 mg PO DAILY hydrOXYzine HCL [Atarax] Med 07/06/20 13:46 Active 25 mg PO BEDTIME PRN lisinopriL [Prinivil] Med 07/07/20 09:00 Active 40 mg PO DAILY Antiembolic Hose [OM.PC] Per Unit Routine Oth 07/06/20 13:45 Ordered Blood Culture x2 Reflex Set [OM.PC] Stat Oth 07/06/20 10:15 Ordered Peripheral IV Insertion Adult [OM.PC] Stat Oth 07/06/20 10:16 Ordered Resuscitation Status Routine Resus Stat 07/06/20 13:38 Ordered Assessment/Plan Comment:: #sepsis 2/2 right chest wall abscess - given purulence will assume MRSA - c/w vancomycin - appreciate pharm dosing rec - will have RN exchange packing tomorrow #DM2 - hold oral hypoglycemics and metformin - c/w lantus and ALEX #HT / HL / asthma - c/w home meds PPX - LMWH Full code
[2020-07-06] MEDS: oxyCODONE 5 MG Tab PO PRN (20:05)
[2020-07-06] MEDS ORDERED: Insulin Glarg,Human.Rec.Analog 100 Unit/ML SUBCUT SCH (21:00)
[2020-07-06] MEDS: Insulin Glarg,Human.Rec.Analog 100 Unit/ML SUBCUT SCH (21:03)
[2020-07-06] MEDS: Fluticasone Propionate Nasal Spray 16 GM Bottle NASBOTH SCH (21:08)
[2020-07-07] MEDS: oxyCODONE 5 MG Tab PO PRN ×4 (01:24→22:14)
[2020-07-07 06:47] LABS: ANION GAP 15.7 mEq/L (7-13)
[2020-07-07] MEDS: Loratadine 10 MG Tab PO SCH (08:07)
[2020-07-07] MEDS: Ferrous Sulfate 325 MG Tab PO SCH (08:07)
[2020-07-07] MEDS: Lisinopril 20 MG Tab PO SCH (08:08)
[2020-07-07] MEDS: Metoprolol Succinate 25 MG Tab.ER PO SCH (08:08)
[2020-07-07] MEDS: Montelukast 10 MG Tab PO SCH (08:08)
[2020-07-07] MEDS: atorvaSTATin 20 MG Tab PO SCH (08:08)
[2020-07-07] MEDS: Acetaminophen 325 MG Tab PO PRN (08:08)
[2020-07-07] MEDS: Aspirin 81 MG Tab.EC PO SCH (08:08)
[2020-07-07] MEDS: Sodium Chloride 0.9% 10 ML Syringe FLUSH PRN (08:09)
[2020-07-07] MEDS: Enoxaparin 40 MG/0.4 ML Syringe SUBCUT SCH (08:09)
[2020-07-07] MEDS: Insulin Lispro 100 Units/ML 3 ML Vial SUBCUT SCH ×4 (08:10→21:03)
[2020-07-07] MEDS: Fluticasone Propionate Nasal Spray 16 GM Bottle NASBOTH SCH ×2 (08:11→21:02)
[2020-07-07] MEDS: Insulin Glarg,Human.Rec.Analog 100 Unit/ML SUBCUT SCH ×2 (08:14→21:02)
[2020-07-07] MEDS ORDERED: Insulin Glarg,Human.Rec.Analog 100 Unit/ML SUBCUT SCH (09:00)
[2020-07-07] MEDS ORDERED: Triamcinolone Acetonide 0.1% Oint 15 GM Tube TOP PRN (09:27)
[2020-07-07] MEDS ORDERED: Ondansetron 4 MG/2 ML SDV IVPUSH PRN (09:52)
[2020-07-07] MEDS: Mycophenolate Mofetil 250 MG Cap PO SCH ×2 (13:24→21:01)
[2020-07-07] MEDS ORDERED: Ondansetron 4 MG/2 ML SDV IVPUSH SCH (14:00)
--- NOTE | 2020-07-07 14:56 | PCM.PN ---
- General Info Date of Service: 07/07/20 Admission Dx/Problem (Free Text): Feels better. Vomited last night. - Patient Data Vitals - Most Recent: Last Vital Signs Temp 97.5 F 07/07/20 12:00 Pulse 74 07/07/20 12:00 Resp 18 07/07/20 12:00 BP 126/59 L 07/07/20 12:00 Pulse Ox 99 07/07/20 12:00 Weight - Most Recent: 154 lb 6.4 oz I&O - Last 24 Hours: Intake & Output 07/06/20 07/07/20 07/07/20 22:59 06:59 14:59 Intake Total 1999 300 620 Balance 1999 300 620 Lab Results Last 24 Hours: Laboratory Results - last 24 hr 07/06/20 07/06/20 07/07/20 Range/Units 17:06 21:00 05:55 WBC 7.2 (5.0-10.0) 10^3/uL RBC 2.55 L (4.2-5.4) 10^6/uL Hgb 7.3 L D (12.0-16.0) g/dL Hct 23.5 L (37.0-47.0) % MCV 92.2 (80-100) fL MCH 28.6 (27.0-34.0) pg MCHC 31.1 L (33.0-35.0) g/dL Plt Count 413 (150-450) 10^3/uL Sodium (136-145) mmol/L Potassium (3.5-5.1) mmol/L Chloride (98-107) mmol/L Carbon Dioxide (21-32) mmol/L Anion Gap (7-13) mEq/L BUN (7-18) mg/dL Creatinine (0.55-1.02) mg/dL Est Cr Clr Drug Dosing mL/min Estimated GFR (MDRD) BUN/Creatinine Ratio (No establ ref range) Glucose (74-99) mg/dL POC Glucose 238 H 340 H (70-105) mg/dl Calcium (8.5-10.1) mg/dL Phosphorus (2.6-4.7) mg/dL Magnesium (1.8-2.4) mg/dL Total Bilirubin (0.2-1.0) mg/dL AST (15-37) U/L ALT (14-59) U/L Alkaline Phosphatase (46-116) U/L Total Protein (6.4-8.2) g/dL Albumin (3.4-5.0) g/dL Globulin Albumin/Globulin Ratio 07/07/20 07/07/20 07/07/20 Range/Units 05:55 07:55 11:43 WBC (5.0-10.0) 10^3/uL RBC (4.2-5.4) 10^6/uL Hgb (12.0-16.0) g/dL Hct (37.0-47.0) % MCV (80-100) fL MCH (27.0-34.0) pg MCHC (33.0-35.0) g/dL Plt Count (150-450) 10^3/uL Sodium 136 (136-145) mmol/L Potassium 4.7 (3.5-5.1) mmol/L Chloride 103 (98-107) mmol/L Carbon Dioxide 22 (21-32) mmol/L Anion Gap 15.7 H (7-13) mEq/L BUN 13 (7-18) mg/dL Creatinine 1.14 H (0.55-1.02) mg/dL Est Cr Clr Drug Dosing 48.51 mL/min Estimated GFR (MDRD) 48 BUN/Creatinine Ratio 11.4 (No establ ref range) Glucose 160 H (74-99) mg/dL POC Glucose 149 H 201 H (70-105) mg/dl Calcium 7.6 L (8.5-10.1) mg/dL Phosphorus 3.0 (2.6-4.7) mg/dL Magnesium 2.2 (1.8-2.4) mg/dL Total Bilirubin 0.3 (0.2-1.0) mg/dL AST 8 L (15-37) U/L ALT 21 (14-59) U/L Alkaline Phosphatase 98 (46-116) U/L Total Protein 4.7 L (6.4-8.2) g/dL Albumin 1.9 L (3.4-5.0) g/dL Globulin 2.8 Albumin/Globulin Ratio 0.68 Eusebio Results Last 24 Hours: Microbiology 07/06/20 10:28 Aerobic Blood Culture - Preliminary Blood - Arm, Right NO GROWTH AFTER 1 DAY Anaerobic Blood Culture - Preliminary NO GROWTH AFTER 1 DAY 03/11/21 10:28 Aerobic Blood Culture - Preliminary Blood - Venous - Iv Start NO GROWTH AFTER 1 DAY Anaerobic Blood Culture - Preliminary NO GROWTH AFTER 1 DAY 07/06/20 11:11 Wound Culture - Preliminary Back - Exam Quality Assessment: No: Supplemental Oxygen General: Alert, Oriented, Cooperative HEENT: Pupils Equal, Pupils Reactive Neck: Supple Lungs: Clear to Auscultation, Normal Respiratory Effort Cardiovascular: Regular Rate, Regular Rhythm, No Murmurs GI/Abdominal Exam: Normal Bowel Sounds, Soft, Non-Tender, No Distention Back Exam: Other (2 cm incision in right scapular area, packing removed and minimal purulence, still w/ area of erythema surrounding the incidion) Skin: Warm, Dry Neurological: No New Focal Deficit, Normal Speech Psy/Mental Status: Alert, Normal Affect, Normal Mood - Patient Data Lab Results Last 24 hrs: Laboratory Results - last 24 hr 07/06/20 07/06/20 07/07/20 Range/Units 17:06 21:00 05:55 WBC 7.2 (5.0-10.0) 10^3/uL RBC 2.55 L (4.2-5.4) 10^6/uL Hgb 7.3 L D (12.0-16.0) g/dL Hct 23.5 L (37.0-47.0) % MCV 92.2 (80-100) fL MCH 28.6 (27.0-34.0) pg MCHC 31.1 L (33.0-35.0) g/dL Plt Count 413 (150-450) 10^3/uL Sodium (136-145) mmol/L Potassium (3.5-5.1) mmol/L Chloride (98-107) mmol/L Carbon Dioxide (21-32) mmol/L Anion Gap (7-13) mEq/L BUN (7-18) mg/dL Creatinine (0.55-1.02) mg/dL Est Cr Clr Drug Dosing mL/min Estimated GFR (MDRD) BUN/Creatinine Ratio (No establ ref range) Glucose (74-99) mg/dL POC Glucose 238 H 340 H (70-105) mg/dl Calcium (8.5-10.1) mg/dL Phosphorus (2.6-4.7) mg/dL Magnesium (1.8-2.4) mg/dL Total Bilirubin (0.2-1.0) mg/dL AST (15-37) U/L ALT (14-59) U/L Alkaline Phosphatase (46-116) U/L Total Protein (6.4-8.2) g/dL Albumin (3.4-5.0) g/dL Globulin Albumin/Globulin Ratio 07/07/20 07/07/20 07/07/20 Range/Units 05:55 07:55 11:43 WBC (5.0-10.0) 10^3/uL RBC (4.2-5.4) 10^6/uL Hgb (12.0-16.0) g/dL Hct (37.0-47.0) % MCV (80-100) fL MCH (27.0-34.0) pg MCHC (33.0-35.0) g/dL Plt Count (150-450) 10^3/uL Sodium 136 (136-145) mmol/L Potassium 4.7 (3.5-5.1) mmol/L Chloride 103 (98-107) mmol/L Carbon Dioxide 22 (21-32) mmol/L Anion Gap 15.7 H (7-13) mEq/L BUN 13 (7-18) mg/dL Creatinine 1.14 H (0.55-1.02) mg/dL Est Cr Clr Drug Dosing 48.51 mL/min Estimated GFR (MDRD) 48 BUN/Creatinine Ratio 11.4 (No establ ref range) Glucose 160 H (74-99) mg/dL POC Glucose 149 H 201 H (70-105) mg/dl Calcium 7.6 L (8.5-10.1) mg/dL Phosphorus 3.0 (2.6-4.7) mg/dL Magnesium 2.2 (1.8-2.4) mg/dL Total Bilirubin 0.3 (0.2-1.0) mg/dL AST 8 L (15-37) U/L ALT 21 (14-59) U/L Alkaline Phosphatase 98 (46-116) U/L Total Protein 4.7 L (6.4-8.2) g/dL Albumin 1.9 L (3.4-5.0) g/dL Globulin 2.8 Albumin/Globulin Ratio 0.68 Result Diagrams: 07/07/20 05:55 07/07/20 05:55 Eusebio Results Last 24 hrs: Microbiology 07/06/20 10:28 Aerobic Blood Culture - Preliminary Blood - Arm, Right NO GROWTH AFTER 1 DAY Anaerobic Blood Culture - Preliminary NO GROWTH AFTER 1 DAY 07/06/20 10:28 Aerobic Blood Culture - Preliminary Blood - Venous - Iv Start NO GROWTH AFTER 1 DAY Anaerobic Blood Culture - Preliminary NO GROWTH AFTER 1 DAY 07/06/20 11:11 Wound Culture - Preliminary Back Sepsis Event Note - Evaluation Sepsis Screening Result: No Definite Risk - Focused Exam Vital Signs: Vital Signs Temp Pulse Pulse Resp BP BP Pulse Ox 07/07/20 12:00 97.5 F 74 18 126/59 L 99 07/07/20 08:08 77 134/63 07/07/20 08:00 98.2 F 77 18 134/63 98 - Problem List Review Problem List Initiated/Reviewed/Updated: No - My Orders Last 24 Hours: My Active Orders 07/06/20 14:54 Up ad Pearl [RC] ASDIRECTED 07/06/20 14:56 Blood Glucose Check, Bedside [] WITHMEALSANDBED 07/06/20 Dinner Carbohydrate Counting [Consistent Carbohydrate Diet] [DIET] 07/06/20 18:00 Insulin Lispro [HumaLOG] See Protocol SUBCUT WITHMEALSANDBED 07/06/20 19:45 oxyCODONE 5 mg PO Q6H PRN 07/06/20 21:00 Fluocinonide [Lidex 0.05% Crm] 0 gm TOP BID Fluticasone Propionate [Flonase] 0 gm NASBOTH BID Insulin Glarg,Human.Rec.Analog [LantUS] 30 unit SUBCUT BID 07/07/20 09:00 Aspirin [Halfprin] 81 mg PO DAILY Enoxaparin [Lovenox] 40 mg SUBCUT DAILY Ferrous Sulfate 325 mg PO DAILY Loratadine [Claritin] 10 mg PO DAILY Metoprolol Succinate [Toprol XL] 25 mg PO DAILY Montelukast [Singulair] 10 mg PO DAILY atorvaSTATin [Lipitor] 40 mg PO DAILY lisinopriL [Prinivil] 40 mg PO DAILY 07/07/20 09:27 Triamcinolone Acetonide [Triamcinolone Acetonide 0.1% Oint] 0 gm TOP BID PRN 07/07/20 09:52 Ondansetron [Zofran] 4 mg IVPUSH Q8HR PRN 07/07/20 11:00 Vancomycin 1 gm Sodium Chloride 0.9% [Normal Saline (AdvBag)] 250 ml IV Q24H 07/07/20 13:15 mycophenolate mofetiL [Cellcept] 1,000 mg PO BID 07/08/20 06:00 Omeprazole 20 mg PO ACBRK 07/08/20 09:00 Magnesium Oxide 500 mg PO DAILY amLODIPine [Norvasc] 5 mg PO DAILY hydroCHLOROthiazide 50 mg PO DAILY - Plan Plan:: #sepsis 2/ right chest wall abscess - given purulence will assume MRSA - c/w vancomycin - appreciate pharm dosing rec - wound care d/w RN #JULEE - improved #DM2 - hold oral hypoglycemics and metformin - c/w lantus and AELX #HT / HL / asthma - c/w home meds PPX - LMWH Full code
[2020-07-08] MEDS: Omeprazole 20 MG Cap.CR PO SCH (06:04)
[2020-07-08] MEDS: oxyCODONE 5 MG Tab PO PRN ×3 (06:04→18:11)
[2020-07-08] MEDS: Mycophenolate Mofetil 250 MG Cap PO SCH ×2 (08:30→21:15)
[2020-07-08] MEDS: Ferrous Sulfate 325 MG Tab PO SCH (08:30)
[2020-07-08] MEDS: Lisinopril 20 MG Tab PO SCH (08:31)
[2020-07-08] MEDS: Montelukast 10 MG Tab PO SCH (08:31)
[2020-07-08] MEDS: Aspirin 81 MG Tab.EC PO SCH (08:31)
[2020-07-08] MEDS: atorvaSTATin 20 MG Tab PO SCH (08:31)
[2020-07-08] MEDS: Metoprolol Succinate 25 MG Tab.ER PO SCH (08:32)
[2020-07-08] MEDS: amLODIPine 5 MG Tab PO SCH (08:32)
[2020-07-08] MEDS: Loratadine 10 MG Tab PO SCH (08:32)
[2020-07-08] MEDS: Hydrochlorothiazide 25 MG Tab PO SCH (08:32)
[2020-07-08] MEDS: Enoxaparin 40 MG/0.4 ML Syringe SUBCUT SCH (08:33)
[2020-07-08] MEDS: Fluticasone Propionate Nasal Spray 16 GM Bottle NASBOTH SCH ×2 (08:33→21:15)
[2020-07-08] MEDS: Insulin Lispro 100 Units/ML 3 ML Vial SUBCUT SCH ×6 (08:34→21:17)
[2020-07-08] MEDS: Insulin Glarg,Human.Rec.Analog 100 Unit/ML SUBCUT SCH ×4 (08:35→21:40)
--- NOTE | 2020-07-08 10:51 | PCM.PN ---
- General Info Date of Service: 07/08/20 Admission Dx/Problem (Free Text): Feels overall better. Nauseated at times. Less pain at abscess site. Feels less swollen. Afebrile. FSG 200s noted. - Patient Data Vitals - Most Recent: Last Vital Signs Temp 99.0 F 07/08/20 08:36 Pulse 72 07/08/20 08:36 Resp 20 07/08/20 08:36 BP 138/64 07/08/20 08:36 Pulse Ox 98 07/08/20 08:36 Weight - Most Recent: 154 lb 6.4 oz I&O - Last 24 Hours: Intake & Output 07/07/20 07/08/20 07/08/20 22:59 06:59 14:59 Intake Total 340 Balance 340 Lab Results Last 24 Hours: Laboratory Results - last 24 hr 07/07/20 07/07/20 07/07/20 Range/Units 11:43 16:56 20:57 POC Glucose 201 H 247 H 239 H (70-105) mg/dl 07/08/20 Range/Units 08:10 POC Glucose 185 H (70-105) mg/dl Eusebio Results Last 24 Hours: Microbiology 07/06/20 10:28 Aerobic Blood Culture - Preliminary Blood - Venous - Iv Start NO GROWTH AFTER 2 DAYS Anaerobic Blood Culture - Preliminary NO GROWTH AFTER 2 DAYS 07/06/20 10:28 Aerobic Blood Culture - Preliminary Blood - Arm, Right NO GROWTH AFTER 2 DAYS Anaerobic Blood Culture - Preliminary NO GROWTH AFTER 2 DAYS 07/06/20 11:11 Wound Culture - Preliminary Back Med Orders - Current: Current Medications Acetaminophen (Acetaminophen 325 Mg Tab) 650 mg PO Q4H PRN PRN Reason: Pain (Mild 1-3)/fever Last Admin: 07/07/20 08:08 Dose: 650 mg Documented by: Amlodipine Besylate (Amlodipine 5 Mg Tab) 5 mg PO DAILY [facility] Last Admin: 07/08/20 08:32 Dose: 5 mg Documented by: Aspirin (Aspirin 81 Mg Tab.Ec) 81 mg PO DAILY [facility] Last Admin: 07/08/20 08:31 Dose: 81 mg Documented by: Atorvastatin Calcium (Atorvastatin 20 Mg Tab) 40 mg PO DAILY [facility] Last Admin: 07/08/20 08:31 Dose: 40 mg Documented by: Dextrose/Water (50% Dextrose In Water 50 Ml Syringe) 50 ml IV ASDIRECTED PRN PRN Reason: Hypoglycemia Enoxaparin Sodium (Enoxaparin 40 Mg/0.4 Ml Syringe) 40 mg SUBCUT DAILY [facility] Last Admin: 07/08/20 08:33 Dose: 40 mg Documented by: Ferrous Sulfate (Ferrous Sulfate 325 Mg Tab) 325 mg PO DAILY [facility] Last Admin: 07/08/20 08:30 Dose: 325 mg Documented by: Fluocinonide (Fluocinonide 0.05% Crm 15 Gm Tube) 0 gm TOP BID [facility] Last Admin: 07/08/20 08:35 Dose: Not Given Documented by: Fluticasone Propionate (Fluticasone Propionate Nasal [place] 16 Gm Bottle) 0 gm NASBOTH BID [facility] Last Admin: 07/08/20 08:33 Dose: 1 spray Documented by: Glucagon (Glucagon,Human Recombinant 1 Mg Vial) 1 mg IM ASDIRECTED PRN PRN Reason: Hypoglycemia Hydrochlorothiazide (Hydrochlorothiazide 25 Mg Tab) 50 mg PO DAILY [facility] Last Admin: 07/08/20 08:32 Dose: 50 mg Documented by: Hydroxyzine HCl (Hydroxyzine Hcl 25 Mg Tab) 25 mg PO BEDTIME PRN PRN Reason: Itching Vancomycin HCl 1 gm/ Sodium (Chloride) 250 mls @ 167 mls/hr IV Q24H [facility] Last Admin: 07/07/20 11:13 Dose: 167 mls/hr Documented by: Insulin Glargine (Insulin Glarg,Human.Rec.Analog 100 Unit/Ml) 30 unit SUBCUT BID [facility] Last Admin: 07/08/20 08:35 Dose: 30 units Documented by: Insulin Human Lispro (Insulin Lispro 100 Units/Ml 3 Ml Vial) 0 unit SUBCUT WITHMEALSANDBED [facility]; Protocol Last Admin: 07/08/20 08:34 Dose: 2 units Documented by: Insulin Human Lispro (Insulin Lispro 100 Units/Ml 3 Ml Vial) 4 unit SUBCUT WITHBREAKFAST [facility] Insulin Human Lispro (Insulin Lispro 100 Units/Ml 3 Ml Vial) 4 unit SUBCUT WITHLUNCH [facility] Insulin Human Lispro (Insulin Lispro 100 Units/Ml 3 Ml Vial) 4 unit SUBCUT WITHDINNER [facility] Lisinopril (Lisinopril 20 Mg Tab) 40 mg PO DAILY [facility] Last Admin: 07/08/20 08:31 Dose: 40 mg Documented by: Loratadine (Loratadine 10 Mg Tab) 10 mg PO DAILY [facility] Last Admin: 07/08/20 08:32 Dose: 10 mg Documented by: Magnesium Oxide (Magnesium Oxide 250 Mg Tab) 500 mg PO DAILY [facility] Last Admin: 07/08/20 08:32 Dose: 500 mg Documented by: Metoprolol Succinate (Metoprolol Succinate 25 Mg Tab.Er) 25 mg PO DAILY [facility] Last Admin: 07/08/20 08:32 Dose: 25 mg Documented by: Mometasone Furoate/Formoterol Fumar (Formoterol/Mometasone 200-5 Mcg 8.8 Gm Inhaler) 2 puff IH DAILY PRN PRN Reason: Shortness of Breath Montelukast Sodium (Montelukast 10 Mg Tab) 10 mg PO DAILY [facility] Last Admin: 07/08/20 08:31 Dose: 10 mg Documented by: Mycophenolate Mofetil (Mycophenolate Mofetil 250 Mg Cap) 1,000 mg PO BID [facility] Last Admin: 07/08/20 08:30 Dose: 1,000 mg Documented by: Omeprazole (Omeprazole 20 Mg Cap.Cr) 20 mg PO ACBRK [facility] Last Admin: 07/08/20 06:04 Dose: 20 mg Documented by: Ondansetron HCl (Ondansetron 4 Mg/2 Ml Sdv) 4 mg IVPUSH Q8HR PRN PRN Reason: Nausea/Vomiting Last Admin: 07/07/20 10:28 Dose: 4 mg Documented by: Oxycodone HCl (Oxycodone 5 Mg Tab) 5 mg PO Q6H PRN PRN Reason: Pain (severe 7-10) Last Admin: 07/08/20 06:04 Dose: 5 mg Documented by: Sodium Chloride (Sodium Chloride 0.9% 10 Ml Syringe) 10 ml FLUSH ASDIRECTED PRN PRN Reason: Keep Vein Open Last Admin: 07/07/20 08:09 Dose: 10 ml Documented by: Triamcinolone Acetonide (Triamcinolone Acetonide 0.1% Oint 15 Gm Tube) 0 gm TOP BID PRN PRN Reason: Inflammation Discontinued Medications Diphenhydramine HCl (Diphenhydramine 50 Mg/Ml Sdv) 25 mg IVPUSH ONETIME ONE Stop: 07/06/20 10:56 Last Admin: 07/06/20 11:13 Dose: 25 mg Documented by: Fentanyl (Fentanyl 100 Mcg/2 Ml Sdv) 100 mcg IVPUSH ONETIME ONE Stop: 07/06/20 10:22 Last Admin: 07/06/20 11:02 Dose: 100 mcg Documented by: Vancomycin HCl 1 gm/ Sodium (Chloride) 250 mls @ 167 mls/hr IV ONETIME ONE Stop: 07/06/20 12:24 Last Admin: 07/06/20 11:13 Dose: 167 mls/hr Documented by: Sodium Chloride (Normal Saline) 1,000 mls @ 999 mls/hr IV .BOLUS ONE Stop: 07/06/20 12:45 Last Infusion: 07/06/20 15:08 Dose: Infused Documented by: Vancomycin HCl 1 gm/ Sodium (Chloride) 250 mls @ 167 mls/hr IV Q12H [facility] Insulin Glargine (Insulin Glarg,Human.Rec.Analog 100 Unit/Ml) 30 unit SUBCUT DAILY [facility] Insulin Glargine (Insulin Glarg,Human.Rec.Analog 100 Unit/Ml) 30 unit SUBCUT BEDTIME [facility] Lidocaine HCl (Lidocaine 1% 30 Ml Sdv) 30 ml INJECT ONETIME ONE Stop: 07/06/20 10:21 Last Admin: 07/06/20 11:03 Dose: 30 ml Documented by: Ondansetron HCl (Ondansetron 4 Mg/2 Ml Sdv) 4 mg IV ONETIME ONE Stop: 07/06/20 10:22 Last Admin: 07/06/20 11:03 Dose: 4 mg Documented by: Ondansetron HCl (Ondansetron 4 Mg/2 Ml Sdv) 4 mg IVPUSH Q8HR [facility] - Exam Quality Assessment: No: Supplemental Oxygen General: Alert, Oriented, Cooperative HEENT: Pupils Equal, Pupils Reactive Neck: Supple Lungs: Clear to Auscultation, Normal Respiratory Effort Cardiovascular: Regular Rate, Regular Rhythm, No Murmurs GI/Abdominal Exam: Normal Bowel Sounds, Soft, Non-Tender, No Distention Back Exam: Normal Inspection Extremities: No Pedal Edema Skin: Warm, Dry Wound/Incisions: Other (right scapula s/p abscess - there is sloughing tissue lining the cavity borders, no expressable purulence, the cavity itself has closed significantly and surrounding skin significantly less swollen and eryth ematous) Neurological: No New Focal Deficit Psy/Mental Status: Alert, Normal Affect, Normal Mood - Patient Data Lab Results Last 24 hrs: Laboratory Results - last 24 hr 07/07/20 07/07/20 07/07/20 Range/Units 11:43 16:56 20:57 POC Glucose 201 H 247 H 239 H (70-105) mg/dl 07/08/20 Range/Units 08:10 POC Glucose 185 H (70-105) mg/dl Result Diagrams: 07/07/20 05:55 07/07/20 05:55 Eusebio Results Last 24 hrs: Microbiology 07/06/20 10:28 Aerobic Blood Culture - Preliminary Blood - Venous - Iv Start NO GROWTH AFTER 2 DAYS Anaerobic Blood Culture - Preliminary NO GROWTH AFTER 2 DAYS 07/06/20 10:28 Aerobic Blood Culture - Preliminary Blood - Arm, Right NO GROWTH AFTER 2 DAYS Anaerobic Blood Culture - Preliminary NO GROWTH AFTER 2 DAYS 07/06/20 11:11 Wound Culture - Preliminary Back Sepsis Event Note - Evaluation Sepsis Screening Result: No Definite Risk - Focused Exam Vital Signs: Vital Signs Temp Pulse Pulse Resp BP BP Pulse Ox 07/08/20 08:36 99.0 F 72 20 138/64 98 07/08/20 08:32 72 138/64 07/08/20 08:31 138/64 07/08/20 00:00 97.6 F 76 18 153/64 H 100 - Problem List Review Problem List Initiated/Reviewed/Updated: No - My Orders Last 24 Hours: My Active Orders 07/07/20 09:52 Ondansetron [Zofran] 4 mg IVPUSH Q8HR PRN 07/07/20 11:00 Vancomycin 1 gm Sodium Chloride 0.9% [Normal Saline (AdvBag)] 250 ml IV Q24H 07/07/20 13:15 mycophenolate mofetiL [Cellcept] 1,000 mg PO BID 07/08/20 06:00 Omeprazole 20 mg PO ACBRK 07/08/20 09:00 Magnesium Oxide 500 mg PO DAILY amLODIPine [Norvasc] 5 mg PO DAILY hydroCHLOROthiazide 50 mg PO DAILY 07/08/20 12:00 Insulin Lispro [HumaLOG] 4 unit SUBCUT WITHLUNCH 07/08/20 18:00 Insulin Lispro [HumaLOG] 4 unit SUBCUT WITHDINNER 07/09/20 08:00 Insulin Lispro [HumaLOG] 4 unit SUBCUT WITHBREAKFAST - Plan Plan:: #sepsis 2/2 right chest wall abscess - given purulence will assume MRSA - c/w vancomycin - appreciate pharm dosing rec - wound care d/w RN - will explore wound care consult options on Friday - pt may need sharp debridement at some point #JULEE - improved #DM2 - hold oral hypoglycemics and metformin - c/w lantus and add 4U prandial insuline - c/w ALEX #HT / HL / asthma - c/w home meds PPX - LMWH Full code
[2020-07-08] MEDS: Acetaminophen 325 MG Tab PO PRN (12:10)
[2020-07-09] MEDS: oxyCODONE 5 MG Tab PO PRN ×4 (00:08→21:02)
[2020-07-09] MEDS: Omeprazole 20 MG Cap.CR PO SCH (06:17)
[2020-07-09] MEDS: Enoxaparin 40 MG/0.4 ML Syringe SUBCUT SCH (08:38)
[2020-07-09] MEDS: Ferrous Sulfate 325 MG Tab PO SCH (08:39)
[2020-07-09] MEDS: Loratadine 10 MG Tab PO SCH (08:39)
[2020-07-09] MEDS: Aspirin 81 MG Tab.EC PO SCH (08:40)
[2020-07-09] MEDS: Mycophenolate Mofetil 250 MG Cap PO SCH ×2 (08:41→21:01)
[2020-07-09] MEDS: atorvaSTATin 20 MG Tab PO SCH (08:41)
[2020-07-09] MEDS: Montelukast 10 MG Tab PO SCH (08:43)
[2020-07-09] MEDS: Hydrochlorothiazide 25 MG Tab PO SCH (08:43)
[2020-07-09] MEDS: Lisinopril 20 MG Tab PO SCH (08:45)
[2020-07-09] MEDS: Metoprolol Succinate 25 MG Tab.ER PO SCH (08:46)
[2020-07-09] MEDS: amLODIPine 5 MG Tab PO SCH (08:46)
[2020-07-09] MEDS: Fluticasone Propionate Nasal Spray 16 GM Bottle NASBOTH SCH ×2 (08:57→21:07)
[2020-07-09] MEDS: Insulin Lispro 100 Units/ML 3 ML Vial SUBCUT SCH ×7 (08:58→21:00)
[2020-07-09] MEDS ORDERED: Insulin Glarg,Human.Rec.Analog 100 Unit/ML SUBCUT SCH (09:00)
[2020-07-09] MEDS: Insulin Glarg,Human.Rec.Analog 100 Unit/ML SUBCUT SCH ×2 (09:02→21:00)
[2020-07-09] MEDS ORDERED: Lidocaine 2% 20 ML MDV INFILT ONE ×2 (10:57→13:30)
[2020-07-09] MEDS ORDERED: Lidocaine 1% 30 ML SDV INJECT ONE (13:45)
[2020-07-09] MEDS: Acetaminophen 325 MG Tab PO PRN (13:51)
--- NOTE | 2020-07-09 17:17 | PCM.PN ---
- General Info Date of Service: 07/09/20 Admission Dx/Problem (Free Text): No complaints. Attempted to debride necrotic tissue lining wound cavity however tissue bleeds as soon as any debridement is attempted so necrotic tissue is likely superficial. - Patient Data Vitals - Most Recent: Last Vital Signs Temp 97.3 F 07/09/20 12:00 Pulse 67 07/09/20 12:00 Resp 18 07/09/20 12:00 BP 132/68 07/09/20 12:00 Pulse Ox 97 07/09/20 12:00 Weight - Most Recent: 154 lb 6.4 oz Lab Results Last 24 Hours: Laboratory Results - last 24 hr 07/08/20 07/08/20 07/09/20 Range/Units 16:46 20:09 08:07 POC Glucose 242 H 286 H 135 H (70-105) mg/dl 07/09/20 07/09/20 Range/Units 11:47 16:54 POC Glucose 141 H 173 H (70-105) mg/dl Eusebio Results Last 24 Hours: Microbiology 07/06/20 10:28 Aerobic Blood Culture - Preliminary Blood - Venous - Iv Start NO GROWTH AFTER 3 DAYS Anaerobic Blood Culture - Preliminary NO GROWTH AFTER 3 DAYS 07/06/20 10:28 Aerobic Blood Culture - Preliminary Blood - Arm, Right NO GROWTH AFTER 3 DAYS Anaerobic Blood Culture - Preliminary NO GROWTH AFTER 3 DAYS 07/06/20 11:11 Wound Culture - Final Back Staphylococcus Aureus Med Orders - Current: Current Medications Acetaminophen (Acetaminophen 325 Mg Tab) 650 mg PO Q4H PRN PRN Reason: Pain (Mild 1-3)/fever Last Admin: 07/09/20 13:51 Dose: 650 mg Documented by: Amlodipine Besylate (Amlodipine 5 Mg Tab) 5 mg PO DAILY [facility] Last Admin: 07/09/20 08:46 Dose: 5 mg Documented by: Aspirin (Aspirin 81 Mg Tab.Ec) 81 mg PO DAILY [facility] Last Admin: 07/09/20 08:40 Dose: 81 mg Documented by: Atorvastatin Calcium (Atorvastatin 20 Mg Tab) 40 mg PO DAILY [facility] Last Admin: 07/09/20 08:41 Dose: 40 mg Documented by: Dextrose/Water (50% Dextrose In Water 50 Ml Syringe) 50 ml IV ASDIRECTED PRN PRN Reason: Hypoglycemia Enoxaparin Sodium (Enoxaparin 40 Mg/0.4 Ml Syringe) 40 mg SUBCUT DAILY [facility] Last Admin: 07/09/20 08:38 Dose: 40 mg Documented by: Ferrous Sulfate (Ferrous Sulfate 325 Mg Tab) 325 mg PO DAILY [facility] Last Admin: 07/09/20 08:39 Dose: 325 mg Documented by: Fluocinonide (Fluocinonide 0.05% Crm 15 Gm Tube) 0 gm TOP BID [facility] Last Admin: 07/09/20 08:45 Dose: 1 applic Documented by: Fluticasone Propionate (Fluticasone Propionate Nasal [place] 16 Gm Bottle) 0 gm NASBOTH BID [facility] Last Admin: 07/09/20 08:57 Dose: 1 spray Documented by: Glucagon (Glucagon,Human Recombinant 1 Mg Vial) 1 mg IM ASDIRECTED PRN PRN Reason: Hypoglycemia Hydrochlorothiazide (Hydrochlorothiazide 25 Mg Tab) 50 mg PO DAILY [facility] Last Admin: 07/09/20 08:43 Dose: 50 mg Documented by: Hydroxyzine HCl (Hydroxyzine Hcl 25 Mg Tab) 25 mg PO BEDTIME PRN PRN Reason: Itching Vancomycin HCl 1 gm/ Sodium (Chloride) 250 mls @ 167 mls/hr IV Q24H [facility] Last Admin: 07/09/20 12:33 Dose: 167 mls/hr Documented by: Insulin Glargine (Insulin Glarg,Human.Rec.Analog 100 Unit/Ml) 35 unit SUBCUT BID [facility] Last Admin: 07/09/20 09:02 Dose: 35 units Documented by: Insulin Human Lispro (Insulin Lispro 100 Units/Ml 3 Ml Vial) 0 unit SUBCUT WITHMEALSANDBED [facility]; Protocol Last Admin: 07/09/20 17:10 Dose: 2 units Documented by: Insulin Human Lispro (Insulin Lispro 100 Units/Ml 3 Ml Vial) 4 unit SUBCUT WITHBREAKFAST [facility] Last Admin: 07/09/20 08:59 Dose: 4 units Documented by: Insulin Human Lispro (Insulin Lispro 100 Units/Ml 3 Ml Vial) 4 unit SUBCUT WITHLUNCH [facility] Last Admin: 07/09/20 12:38 Dose: 4 units Documented by: Insulin Human Lispro (Insulin Lispro 100 Units/Ml 3 Ml Vial) 4 unit SUBCUT W ITHDINNER [facility] Last Admin: 07/08/20 17:11 Dose: 4 units Documented by: Lisinopril (Lisinopril 20 Mg Tab) 40 mg PO DAILY [facility] Last Admin: 07/09/20 08:45 Dose: 40 mg Documented by: Loratadine (Loratadine 10 Mg Tab) 10 mg PO DAILY [facility] Last Admin: 07/09/20 08:39 Dose: 10 mg Documented by: Magnesium Oxide (Magnesium Oxide 250 Mg Tab) 500 mg PO DAILY [facility] Last Admin: 07/09/20 08:39 Dose: 500 mg Documented by: Metoprolol Succinate (Metoprolol Succinate 25 Mg Tab.Er) 25 mg PO DAILY [facility] Last Admin: 07/09/20 08:46 Dose: 25 mg Documented by: Mometasone Furoate/Formoterol Fumar (Formoterol/Mometasone 200-5 Mcg 8.8 Gm Inhaler) 2 puff IH DAILY PRN PRN Reason: Shortness of Breath Montelukast Sodium (Montelukast 10 Mg Tab) 10 mg PO DAILY [facility] Last Admin: 07/09/20 08:43 Dose: 10 mg Documented by: Mycophenolate Mofetil (Mycophenolate Mofetil 250 Mg Cap) 1,000 mg PO BID [facility] Last Admin: 07/09/20 08:41 Dose: 1,000 mg Documented by: Omeprazole (Omeprazole 20 Mg Cap.Cr) 20 mg PO ACBRK [facility] Last Admin: 07/09/20 06:17 Dose: 20 mg Documented by: Ondansetron HCl (Ondansetron 4 Mg/2 Ml Sdv) 4 mg IVPUSH Q8HR PRN PRN Reason: Nausea/Vomiting Last Admin: 07/07/20 10:28 Dose: 4 mg Documented by: Oxycodone HCl (Oxycodone 5 Mg Tab) 5 mg PO Q6H PRN PRN Reason: Pain (severe 7-10) Last Admin: 07/09/20 13:52 Dose: 5 mg Documented by: Sodium Chloride (Sodium Chloride 0.9% 10 Ml Syringe) 10 ml FLUSH ASDIRECTED PRN PRN Reason: Keep Vein Open Last Admin: 07/07/20 08:09 Dose: 10 ml Documented by: Triamcinolone Acetonide (Triamcinolone Acetonide 0.1% Oint 15 Gm Tube) 0 gm TOP BID PRN PRN Reason: Inflammation Discontinued Medications Diphenhydramine HCl (Diphenhydramine 50 Mg/Ml Sdv) 25 mg IVPUSH ONETIME ONE Stop: 07/06/20 10:56 Last Admin: 07/06/20 11:13 Dose: 25 mg Documented by: Fentanyl (Fentanyl 100 Mcg/2 Ml Sdv) 100 mcg IVPUSH ONETIME ONE Stop: 07/06/20 10:22 Last Admin: 07/06/20 11:02 Dose: 100 mcg Documented by: Vancomycin HCl 1 gm/ Sodium (Chloride) 250 mls @ 167 mls/hr IV ONETIME ONE Stop: 07/06/20 12:24 Last Admin: 07/06/20 11:13 Dose: 167 mls/hr Documented by: Sodium Chloride (Normal Saline) 1,000 mls @ 999 mls/hr IV .BOLUS ONE Stop: 07/06/20 12:45 Last Infusion: 07/06/20 15:08 Dose: Infused Documented by: Vancomycin HCl 1 gm/ Sodium (Chloride) 250 mls @ 167 mls/hr IV Q12H [facility] Insulin Glargine (Insulin Glarg,Human.Rec.Analog 100 Unit/Ml) 30 unit SUBCUT DAILY [facility] Insulin Glargine (Insulin Glarg,Human.Rec.Analog 100 Unit/Ml) 30 unit SUBCUT BEDTIME [facility] Insulin Glargine (Insulin Glarg,Human.Rec.Analog 100 Unit/Ml) 30 unit SUBCUT BID [facility] Last Admin: 07/08/20 21:40 Dose: Not Given Documented by: Insulin Glargine (Insulin Glarg,Human.Rec.Analog 100 Unit/Ml) 35 unit SUBCUT BID [facility] Lidocaine HCl (Lidocaine 1% 30 Ml Sdv) 30 ml INJECT ONETIME ONE Stop: 07/06/20 10:21 Last Admin: 07/06/20 11:03 Dose: 30 ml Documented by: Lidocaine HCl (Lidocaine 2% 20 Ml Mdv) 20 ml INFILT ONETIME ONE Stop: 07/09/20 10:58 Last Admin: 07/09/20 16:07 Dose: Not Given Documented by: Lidocaine HCl (Lidocaine 2% 20 Ml Mdv) 20 ml INFILT ONETIME ONE Stop: 07/09/20 13:31 Last Admin: 07/09/20 16:07 Dose: Not Given Documented by: Lidocaine HCl (Lidocaine 1% 30 Ml Sdv) 30 ml INJECT ONETIME ONE Stop: 07/09/20 13:46 Last Admin: 07/09/20 16:06 Dose: 30 ml Documented by: Ondansetron HCl (Ondansetron 4 Mg/2 Ml Sdv) 4 mg IV ONETIME ONE Stop: 07/06/20 10:22 Last Admin: 07/06/20 11:03 Dose: 4 mg Documented by: Ondansetron HCl (Ondansetron 4 Mg/2 Ml Sdv) 4 mg IVPUSH Q8HR [facility] - Exam Quality Assessment: No: Supplemental Oxygen General: Alert, Oriented, Cooperative HEENT: Pupils Equal, Pupils Reactive Neck: Supple Lungs: Clear to Auscultation, Normal Respiratory Effort Cardiovascular: Regular Rate, Regular Rhythm, No Murmurs GI/Abdominal Exam: Normal Bowel Sounds, Soft, Non-Tender, No Distention Extremities: No Pedal Edema Skin: Warm, Dry Wound/Incisions: Other (closing progressively, cavity lined w/ necrotic tissue which bleeds immediatly upon manipulaiton, surrounding area of skin erythema and edema resolved) Neurological: No New Focal Deficit Psy/Mental Status: Alert, Normal Affect, Normal Mood - Patient Data Lab Results Last 24 hrs: Laboratory Results - last 24 hr 07/08/20 07/08/20 07/09/20 Range/Units 16:46 20:09 08:07 POC Glucose 242 H 286 H 135 H (70-105) mg/dl 07/09/20 07/09/20 Range/Units 11:47 16:54 POC Glucose 141 H 173 H (70-105) mg/dl Result Diagrams: 07/07/20 05:55 07/07/20 05:55 Eusebio Results Last 24 hrs: Microbiology 07/06/20 10:28 Aerobic Blood Culture - Preliminary Blood - Venous - Iv Start NO GROWTH AFTER 3 DAYS Anaerobic Blood Culture - Preliminary NO GROWTH AFTER 3 DAYS 07/06/20 10:28 Aerobic Blood Culture - Preliminary Blood - Arm, Right NO GROWTH AFTER 3 DAYS Anaerobic Blood Culture - Preliminary NO GROWTH AFTER 3 DAYS 07/06/20 11:11 Wound Culture - Final Back Staphylococcus Aureus Sepsis Event Note - Evaluation Sepsis Screening Result: No Definite Risk - Focused Exam Vital Signs: Vital Signs Temp Pulse Pulse Resp BP BP Pulse Ox 07/09/20 12:00 97.3 F 67 18 132/68 97 07/09/20 08:46 74 133/69 07/09/20 08:45 133/69 07/09/20 08:34 98.8 F 74 20 133/69 100 07/09/20 06:20 97.0 F 73 16 141/60 H 98 - Problem List Review Problem List Initiated/Reviewed/Updated: No - My Orders Last 24 Hours: My Active Orders 07/08/20 18:00 Insulin Lispro [HumaLOG] 4 unit SUBCUT WITHDINNER 07/08/20 21:31 Insulin Glarg,Human.Rec.Analog [LantUS] 35 unit SUBCUT BID 07/09/20 08:00 Insulin Lispro [HumaLOG] 4 unit SUBCUT WITHBREAKFAST - Plan Plan:: #sepsis 2/2 MRSA right chest wall abscess - c/w vancomycin - plan to d/c on bactrim possibly even tomorrow - needs outpatient wound care follow up in short term #JULEE - resolved #DM2 - hold oral hypoglycemics and metformin - c/w lantus and 4U prandial insulin - c/w ALEX #HT / HL / asthma - c/w home meds PPX - LMWH Full code
[2020-07-09] MEDS: Sulfamethoxazole/Trimethoprim 800-160 MG Tab PO SCH (21:01)
[2020-07-10] MEDS: Omeprazole 20 MG Cap.CR PO SCH (05:59)
[2020-07-10 07:58] VITALS: BP 140/67; PULSE 65
[2020-07-10] MEDS: Montelukast 10 MG Tab PO SCH (08:32)
[2020-07-10] MEDS: Insulin Lispro 100 Units/ML 3 ML Vial SUBCUT SCH ×4 (08:32→12:07)
[2020-07-10] MEDS: Ferrous Sulfate 325 MG Tab PO SCH (08:32)
[2020-07-10] MEDS: Sulfamethoxazole/Trimethoprim 800-160 MG Tab PO SCH (08:32)
[2020-07-10] MEDS: Aspirin 81 MG Tab.EC PO SCH (08:33)
[2020-07-10] MEDS: Lisinopril 20 MG Tab PO SCH (08:33)
[2020-07-10] MEDS: Loratadine 10 MG Tab PO SCH (08:33)
[2020-07-10] MEDS: Mycophenolate Mofetil 250 MG Cap PO SCH (08:33)
[2020-07-10] MEDS: atorvaSTATin 20 MG Tab PO SCH (08:33)
[2020-07-10] MEDS: Hydrochlorothiazide 25 MG Tab PO SCH (08:33)
[2020-07-10] MEDS: amLODIPine 5 MG Tab PO SCH (08:33)
[2020-07-10] MEDS: Enoxaparin 40 MG/0.4 ML Syringe SUBCUT SCH (08:34)
[2020-07-10] MEDS: Fluticasone Propionate Nasal Spray 16 GM Bottle NASBOTH SCH (08:34)
[2020-07-10] MEDS: Metoprolol Succinate 25 MG Tab.ER PO SCH (08:34)
[2020-07-10] MEDS: oxyCODONE 5 MG Tab PO PRN ×2 (08:34→13:47)
[2020-07-10] MEDS: Insulin Glarg,Human.Rec.Analog 100 Unit/ML SUBCUT SCH (08:35)
[2020-07-10] MEDS ORDERED: diphenhydrAMINE 25 MG Tab PO ONE (09:12)
--- NOTE | 2020-07-10 15:55 | PCM.DCSUM1 ---
Discharge Summary - Hospital Course Free Text/Narrative:: 59F w/ pmh HL, HT, asthma, cholelithiasis, anemia, DM2 p/w swollen mass in the right scapular region. Pt noticed a lump there 6 days ago. This has progressed in size and tenderness. She denies fever but has become generally unwell w/ nausea and vomiting yesterday. ER evaluation found a large abscess which was I/D and packed. Pt also met sepsis criteria and will be admitted for IV abx. Pt admits to two similar episodes w/ abscesses on her neck and left back. PT underwent an I/D in the emergency room. She was then treated w/ IV vancomycin w/ rapid improvement. Her wound cultures grew MRSA. She was transitioned to bactrim PO however developed a rash and therefore discharged on doxycyline. She was arranged for an outpatient wound care follow up. Diagnosis: Stroke: No - Discharge Data Discharge Date: 07/10/20 Discharge Disposition: Home, Self-Care 01 Condition: Good - Referral to Home Health Primary Care Physician: PCP None - Discharge Plan *PRESCRIPTION DRUG MONITORING PROGRAM REVIEWED*: Not Applicable *COPY OF PRESCRIPTION DRUG MONITORING REPORT IN PATIENT CRISTINO: Not Applicable Prescriptions/Med Rec: Doxycycline [Vibramycin] 100 mg PO DAILY #14 cap Home Medications: Home Meds Montelukast Sodium 10 mg PO DAILY 04/09/13 [History] atorvaSTATin Calcium [Atorvastatin Calcium] 40 mg PO DAILY 04/09/13 [History] metFORMIN HCl [Metformin HCl] 1,000 mg PO BID 04/09/13 [History] Aspirin [Halfprin] 81 mg PO DAILY 03/16/18 [History] Ferrous Gluconate 324 mg PO DAILY 03/16/18 [History] Fluticasone Propionate [Flonase] 2 sprays NASBOTH BID 03/16/18 [History] Fluticasone/Salmeterol [Advair 250-50] 1 puff IH BID PRN 03/16/18 [History] Lisinopril 40 mg PO DAILY 03/16/18 [History] Loratadine [Claritin] 10 mg PO DAILY 03/16/18 [History] Metoprolol Succinate [Toprol XL] 25 mg PO DAILY 03/16/18 [History] Acetaminophen 500 mg PO Q8H PRN 07/06/20 [History] Albuterol Sulfate [Proair Hfa] 2 puff IH QID PRN 07/06/20 [History] Alendronate Sodium 35 mg PO .WEEKLY 07/06/20 [History] Ascorbic Acid [Vitamin C] 500 mg PO DAILY 07/06/20 [History] Carboxymethylcellulose Sodium [Lubricant Eye Drops] 1 each EYELF Q1H PRN 07/06/20 [History] Cholecalciferol (Vitamin D3) [Vitamin D3] 25 mcg PO DAILY 07/06/20 [History] Cyanocobalamin (Vitamin B-12) [Cyanocobalamin Injection] 1,000 mcg IJ .MONTHLY 07/06/20 [History] Magnesium Oxide 400 mg PO DAILY 07/06/20 [History] [place]-3 Acid Ethyl Esters 1 gm PO BID 07/06/20 [History] Omeprazole 20 mg PO DAILY 07/06/20 [History] Semaglutide [Ozempic] 0.5 mg SQ .WEEKLY 07/06/20 [History] Triamcinolone Acetonide [Triamcinolone Acetonide 0.1% Oint] 453.6 gm .XX BID PRN 07/06/20 [History] amLODIPine Besylate [Amlodipine Besylate] 5 mg PO DAILY 07/06/20 [History] hydroCHLOROthiazide [Hydrochlorothiazide] 50 mg PO DAILY 07/06/20 [History] mycophenolate mofetiL [Mycophenolate Mofetil] 1,000 mg PO BID 07/06/20 [History] Doxycycline [Vibramycin] 100 mg PO DAILY #14 cap 07/10/20 [Rx] Insulin Glarg,Human.Rec.Analog [Lantus] 35 unit SUBCUT BID ml 07/10/20 [Rx] Insulin Lispro [HumaLOG] 4 unit SUBCUT WITHBREAKFAST vial 07/10/20 [Rx] Insulin Lispro [HumaLOG] 4 unit SUBCUT WITHDINNER vial 07/10/20 [Rx] Insulin Lispro [HumaLOG] 4 unit SUBCUT WITHLUNCH vial 07/10/20 [Rx] hydrOXYzine HCL [hydrOXYzine] 25 mg PO BEDTIME PRN tablet 07/10/20 [Rx] oxyCODONE 5 mg PO Q6H PRN tablet 07/10/20 [Rx] Patient Handouts: Doxycycline tablets or capsules Referrals: Orquidea Hdez NP [Ordering Only Provider] - - Discharge Summary/Plan Comment DC Time >30 min.: Yes (35 min) - Patient Data Vitals - Most Recent: Last Vital Signs Temp 98.1 F 07/10/20 07:57 Pulse 65 07/10/20 08:34 Resp 20 07/10/20 07:57 BP 140/67 07/10/20 08:34 Pulse Ox 100 07/10/20 07:57 Weight - Most Recent: 154 lb 6.4 oz I&O - Last 24 hours: Intake & Output 07/10/20 07/10/20 07/10/20 06:59 14:59 22:59 Intake Total 200 Balance 200 Lab Results - Last 24 hrs: Laboratory Results - last 24 hr 07/09/20 07/09/20 07/10/20 Range/Units 16:54 20:39 07:57 POC Glucose 173 H 235 H 100 (70-105) mg/dl Hemoglobin A1c (<5.7) % 07/10/20 07/10/20 Range/Units 11:13 12:55 POC Glucose 187 H (70-105) mg/dl Hemoglobin A1c 7.0 H (<5.7) % SCAR Results - Last 24 hrs: Microbiology 07/06/20 10:28 Aerobic Blood Culture - Preliminary Blood - Venous - Iv Start NO GROWTH AFTER 4 DAYS Anaerobic Blood Culture - Preliminary NO GROWTH AFTER 4 DAYS 07/06/20 10:28 Aerobic Blood Culture - Preliminary Blood - Arm, Right NO GROWTH AFTER 4 DAYS Anaerobic Blood Culture - Preliminary NO GROWTH AFTER 4 DAYS Med Orders - Current: Current Medications Discontinued Medications Acetaminophen (Acetaminophen 325 Mg Tab) 650 mg PO Q4H PRN PRN Reason: Pain (Mild 1-3)/fever Last Admin: 07/09/20 13:51 Dose: 650 mg Documented by: Amlodipine Besylate (Amlodipine 5 Mg Tab) 5 mg PO DAILY [facility] Last Admin: 07/10/20 08:33 Dose: 5 mg Documented by: Aspirin (Aspirin 81 Mg Tab.Ec) 81 mg PO DAILY [facility] Last Admin: 07/10/20 08:33 Dose: 81 mg Documented by: Atorvastatin Calcium (Atorvastatin 20 Mg Tab) 40 mg PO DAILY [facility] Last Admin: 07/10/20 08:33 Dose: 40 mg Documented by: Dextrose/Water (50% Dextrose In Water 50 Ml Syringe) 50 ml IV ASDIRECTED PRN PRN Reason: Hypoglycemia Diphenhydramine HCl (Diphenhydramine 50 Mg/Ml Sdv) 25 mg IVPUSH ONETIME ONE Stop: 07/06/20 10:56 Last Admin: 07/06/20 11:13 Dose: 25 mg Documented by: Diphenhydramine HCl (Diphenhydramine 25 Mg Tab) 25 mg PO ONETIME ONE Stop: 07/10/20 09:13 Last Admin: 07/10/20 09:15 Dose: 25 mg Documented by: Enoxaparin Sodium (Enoxaparin 40 Mg/0.4 Ml Syringe) 40 mg SUBCUT DAILY [facility] Last Admin: 07/10/20 08:34 Dose: 40 mg Documented by: Fentanyl (Fentanyl 100 Mcg/2 Ml Sdv) 100 mcg IVPUSH ONETIME ONE Stop: 07/06/20 10:22 Last Admin: 07/06/20 11:02 Dose: 100 mcg Documented by: Ferrous Sulfate (Ferrous Sulfate 325 Mg Tab) 325 mg PO DAILY [facility] Last Admin: 07/10/20 08:32 Dose: 325 mg Documented by: Fluocinonide (Fluocinonide 0.05% Crm 15 Gm Tube) 0 gm TOP BID [facility] Last Admin: 07/10/20 09:04 Dose: Not Given Documented by: Fluticasone Propionate (Fluticasone Propionate Nasal [place] 16 Gm Bottle) 0 gm NASBOTH BID [facility] Last Admin: 07/10/20 08:34 Dose: 1 spray Documented by: Glucagon (Glucagon,Human Recombinant 1 Mg Vial) 1 mg IM ASDIRECTED PRN PRN Reason: Hypoglycemia Hydrochlorothiazide (Hydrochlorothiazide 25 Mg Tab) 50 mg PO DAILY [facility] Last Admin: 07/10/20 08:33 Dose: 50 mg Documented by: Hydroxyzine HCl (Hydroxyzine Hcl 25 Mg Tab) 25 mg PO BEDTIME PRN PRN Reason: Itching Vancomycin HCl 1 gm/ Sodium (Chloride) 250 mls @ 167 mls/hr IV ONETIME ONE Stop: 07/06/20 12:24 Last Admin: 07/06/20 11:13 Dose: 167 mls/hr Documented by: Sodium Chloride (Normal Saline) 1,000 mls @ 999 mls/hr IV .BOLUS ONE Stop: 07/06/20 12:45 Last Infusion: 07/06/20 15:08 Dose: Infused Documented by: Vancomycin HCl 1 gm/ Sodium (Chloride) 250 mls @ 167 mls/hr IV Q12H [facility] Vancomycin HCl 1 gm/ Sodium (Chloride) 250 mls @ 167 mls/hr IV Q24H [facility] Last Admin: 07/09/20 12:33 Dose: 167 mls/hr Documented by: Insulin Glargine (Insulin Glarg,Human.Rec.Analog 100 Unit/Ml) 30 unit SUBCUT DAILY [facility] Insulin Glargine (Insulin Glarg,Human.Rec.Analog 100 Unit/Ml) 30 unit SUBCUT BEDTIME [facility] Insulin Glargine (Insulin Glarg,Human.Rec.Analog 100 Unit/Ml) 30 unit SUBCUT BID [facility] Last Admin: 07/08/20 21:40 Dose: Not Given Documented by: Insulin Glargine (Insulin Glarg,Human.Rec.Analog 100 Unit/Ml) 35 unit SUBCUT BID [facility] Insulin Glargine (Insulin Glarg,Human.Rec.Analog 100 Unit/Ml) 35 unit SUBCUT BID [facility] Last Admin: 07/10/20 08:35 Dose: 35 units Documented by: Insulin Human Lispro (Insulin Lispro 100 Units/Ml 3 Ml Vial) 0 unit SUBCUT WITHMEALSANDBED [facility]; Protocol Last Admin: 07/10/20 12:07 Dose: 2 units Documented by: Insulin Human Lispro (Insulin Lispro 100 Units/Ml 3 Ml Vial) 4 unit SUBCUT WITHBREAKFAST [facility] Last Admin: 07/10/20 08:32 Dose: 4 units Documented by: Insulin Human Lispro (Insulin Lispro 100 Units/Ml 3 Ml Vial) 4 unit SUBCUT WITHLUNCH [facility] Last Admin: 07/10/20 12:07 Dose: 4 units Documented by: Insulin Human Lispro (Insulin Lispro 100 Units/Ml 3 Ml Vial) 4 unit SUBCUT WITHDINNER [facility] Last Admin: 07/09/20 17:11 Dose: 4 units Documented by: Lidocaine HCl (Lidocaine 1% 30 Ml Sdv) 30 ml INJECT ONETIME ONE Stop: 07/06/20 10:21 Last Admin: 07/06/20 11:03 Dose: 30 ml Documented by: Lidocaine HCl (Lidocaine 2% 20 Ml Mdv) 20 ml INFILT ONETIME ONE Stop: 07/09/20 10:58 Last Admin: 07/09/20 16:07 Dose: Not Given Documented by: Lidocaine HCl (Lidocaine 2% 20 Ml Mdv) 20 ml INFILT ONETIME ONE Stop: 07/09/20 13:31 Last Admin: 07/09/20 16:07 Dose: Not Given Documented by: Lidocaine HCl (Lidocaine 1% 30 Ml Sdv) 30 ml INJECT ONETIME ONE Stop: 07/09/20 13:46 Last Admin: 07/09/20 16:06 Dose: 30 ml Documented by: Lisinopril (Lisinopril 20 Mg Tab) 40 mg PO DAILY [facility] Last Admin: 07/10/20 08:33 Dose: 40 mg Documented by: Loratadine (Loratadine 10 Mg Tab) 10 mg PO DAILY [facility] Last Admin: 07/10/20 08:33 Dose: 10 mg Documented by: Magnesium Oxide (Magnesium Oxide 250 Mg Tab) 500 mg PO DAILY [facility] Last Admin: 07/10/20 08:33 Dose: 500 mg Documented by: Metoprolol Succinate (Metoprolol Succinate 25 Mg Tab.Er) 25 mg PO DAILY [facility] Last Admin: 07/10/20 08:34 Dose: 25 mg Documented by: Mometasone Furoate/Formoterol Fumar (Formoterol/Mometasone 200-5 Mcg 8.8 Gm Inhaler) 2 puff IH DAILY PRN PRN Reason: Shortness of Breath Montelukast Sodium (Montelukast 10 Mg Tab) 10 mg PO DAILY [facility] Last Admin: 07/10/20 08:32 Dose: 10 mg Documented by: Mycophenolate Mofetil (Mycophenolate Mofetil 250 Mg Cap) 1,000 mg PO BID [facility] Last Admin: 07/10/20 08:33 Dose: 1,000 mg Documented by: Omeprazole (Omeprazole 20 Mg Cap.Cr) 20 mg PO ACBRK [facility] Last Admin: 07/10/20 05:59 Dose: 20 mg Documented by: Ondansetron HCl (Ondansetron 4 Mg/2 Ml Sdv) 4 mg IV ONETIME ONE Stop: 07/06/20 10:22 Last Admin: 07/06/20 11:03 Dose: 4 mg Documented by: Ondansetron HCl (Ondansetron 4 Mg/2 Ml Sdv) 4 mg IVPUSH Q8HR [facility] Ondansetron HCl (Ondansetron 4 Mg/2 Ml Sdv) 4 mg IVPUSH Q8HR PRN PRN Reason: Nausea/Vomiting Last Admin: 07/07/20 10:28 Dose: 4 mg Documented by: Oxycodone HCl (Oxycodone 5 Mg Tab) 5 mg PO Q6H PRN PRN Reason: Pain (severe 7-10) Last Admin: 07/10/20 13:47 Dose: 5 mg Documented by: Sodium Chloride (Sodium Chloride 0.9% 10 Ml Syringe) 10 ml FLUSH ASDIRECTED PRN PRN Reason: Keep Vein Open Last Admin: 07/07/20 08:09 Dose: 10 ml Documented by: Triamcinolone Acetonide (Triamcinolone Acetonide 0.1% Oint 15 Gm Tube) 0 gm TOP BID PRN PRN Reason: Inflammation Trimethoprim/Sulfamethoxazole (Sulfamethoxazole/Trimethoprim 800-160 Mg Tab) 1 tab PO BID [facility] Last Admin: 07/10/20 08:32 Dose: 1 tab Documented by: - Exam Quality Assessment: Denies: Supplemental Oxygen General: Reports: No Acute Distress. Denies: Alert, Oriented, Cooperative HEENT: Denies: Pupils Equal, Pupils Reactive Neck: Denies: Supple Lungs: Reports: Normal Respiratory Effort. Denies: Clear to Auscultation Cardiovascular: Reports: Regular Rate, Regular Rhythm, No Murmurs GI/Abdominal Exam: Normal Bowel Sounds, Soft, Non-Tender, No Distention Back Exam: Reports: Other (open wound on right scapular chest wall. no expressable discharge. some necrotic slough lining cavity lima. no surrounding edema or cellulitis.) Skin: Reports: Warm, Dry Neurological: Reports: No New Focal Deficit Psy/Mental Status: Reports: Alert, Normal Affect, Normal Mood Discharge Operative/Procedures - Procedures Performed I&D Site: Right lateral thoracic chest wall
== END 2020-07-10 13:50 | disposition home or self-care (01) | DRG 872 ==
LOC: DL.ED 09:48 → DL.MS 12:06
PROVIDERS: ADMIT Internal Medicine; ATTEND Internal Medicine
PROC: 0H94XZZ Drainage of Neck Skin, External Approach (ICD-10-PCS; principal; 2020-07-06)
DX: A41.02 Sepsis due to Methicillin resistant Staphylococcus aureus (principal); L02.213 Cutaneous abscess of chest wall; N17.9 Acute kidney failure, unspecified; E11.9 Type 2 diabetes mellitus without complications; I10 Essential (primary) hypertension; E78.5 Hyperlipidemia, unspecified; J45.909 Unspecified asthma, uncomplicated; Z20.822 Contact with and (suspected) exposure to COVID-19; Z79.4 Long term (current) use of insulin; H54.7 Unspecified visual loss; Z90.49 Acquired absence of other specified parts of digestive tract; D64.9 Anemia, unspecified
CPT/HCPCS: 10060; 36415; 80053; 82962; 83036; 83605; 83735; 84100; 85025; 85027; 86140; 87040; 87070; 87077; 87186; 96365; 96366; 96375; 99283; 99284-25; A9270-GY; J1200; J1650; J1815-GY; J2405; J3010; J3370; J7030; J7050; U0002

== ENCOUNTER 2020-10-07 14:46 | Emergency (ER) | payer MEDICAID ==
[2020-10-07 15:01] VITALS: BP 193/71; PULSE 92
[2020-10-07] MEDS ORDERED: Ondansetron 4 MG Tab.DIS PO ONE (15:18)
[2020-10-07] MEDS ORDERED: HYDROmorphone 1 MG/ML Syringe IM ONE (15:18)
[2020-10-07] MEDS ORDERED: Promethazine 25 MG/ML SDV IM ONE (16:43)
--- NOTE | 2020-10-07 16:49 | CT ---
PROCEDURE INFORMATION: Exam: CT Abdomen And Pelvis Without Contrast Exam date and time: 10/07/2020 3:49 PM Age: 59 years old Clinical indication: Other: Left flank pain; Additional info: Severe left flank pain TECHNIQUE: Imaging protocol: Computed tomography of the abdomen and pelvis without contrast. Radiation optimization: All CT scans at this facility use at least one of these dose optimization techniques: automated exposure control; mA and/or kV adjustment per patient size (includes targeted exams where dose is matched to clinical indication); or iterative reconstruction. COMPARISON: CT CHEST 03/03/2018 2:13 PM FINDINGS: Lungs: Mild lingular atelectasis. No lower lobe infiltrates. Mediastinal space: Small hiatal hernia. Liver: Normal. No mass. Gallbladder and bile ducts: Normal. No calcified stones. No ductal dilation. Pancreas: Normal. No ductal dilation. Spleen: Normal. No splenomegaly. Adrenal glands: Normal. No mass. Kidneys and ureters: Bilateral perirenal stranding. 2 cm right lower pole cortical indeterminate mass. No hydronephrosis. Stomach and bowel: Unremarkable. No obstruction. No mucosal thickening. Moderate stool load. No diverticulosis. No diverticulitis. Appendix: No evidence of appendicitis. Intraperitoneal space: Unremarkable. No free air. No significant fluid collection. Vasculature: Extensive splenic artery vascular calcifications with small dilated peripherally calcified stable splenic aneurysm measuring to 12 mm. Aortoiliac atherosclerotic calcification. Lymph nodes: Unremarkable. No enlarged lymph nodes. Urinary bladder: Unremarkable as visualized. Reproductive: Unremarkable as visualized. Bones/joints: L1 superior endplate invagination and Schmorl's node. Small sclerotic foci clustered in the right iliac bone. No acute fracture. Soft tissues: Subcutaneous distal abdominal skin thickening and edema, IMPRESSION: 1. Bilateral perirenal stranding. Exclude urinary tract infection. 2. Right lower pole 2 cm indeterminate renal mass. Recommend renal ultrasound to characterize. 3. Stable small splenic artery aneurysm and extensive atherosclerotic calcification. 4. Distal abdominal subcutaneous skin thickening and edema. Correlate clinically for superficial infection. 5. Right iliac bone sclerotic nodular densities of unknown etiology. Consider further characterization with MRI bony pelvis.
--- NOTE | 2020-10-07 16:59 | EDM.PDOC ---
"Scribed by Ada Freiats 10/07/20 1721 for Cynthia Chávez MD ED HPI GENERAL MEDICAL PROBLEM - General Chief Complaint: Flank Pain Stated Complaint: KIDNEY PAIN / ON ANITI-BIOTICS Time Seen by Provider: 10/07/20 15:04 Source of Information: Reports: Patient, Old Records, RN, RN Notes Reviewed History Limitations: Reports: No Limitations - History of Present Illness INITIAL COMMENTS - FREE TEXT/NARRATIVE: Patient presents to ED by POV with complaint of left flank pain x3 weeks. The pain has been worse today. The pain is constant but varies in intensity. She states it hurts to walk or with any type of movement. She was seen in clinic shortly after the onset of the pain and treated for a UTI. She returned to clinic and was treated with a second antibiotic, and had an abdominal US, but doesn't know the results. 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 Denies fever or chills, hematuria, N/V, or abdominal pain. 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: Acetaminophen Left Flank Pain Score (Numeric/FACES): 10 - Related Data Allergies Allergy/AdvReac Type Severity Reaction Status Date / Time clindamycin Allergy Rash Verified 10/07/20 15:03 tramadol Allergy Vomiting Verified 10/07/20 15:03 Home Meds: Home Meds Montelukast Sodium 10 mg PO DAILY 04/09/13 [History] atorvaSTATin Calcium [Atorvastatin Calcium] 40 mg PO DAILY 04/09/13 [History] metFORMIN HCl [Metformin HCl] 1,000 mg PO BID 04/09/13 [History] Aspirin [Halfprin] 81 mg PO DAILY 03/16/18 [History] Ferrous Gluconate 324 mg PO DAILY 03/16/18 [History] Fluticasone Propionate [Flonase] 2 sprays NASBOTH BID 03/16/18 [History] Fluticasone/Salmeterol [Advair 250-50] 1 puff IH BID PRN 03/16/18 [History] Lisinopril 40 mg PO DAILY 03/16/18 [History] Loratadine [Claritin] 10 mg PO DAILY 03/16/18 [History] Metoprolol Succinate [Toprol XL] 25 mg PO DAILY 03/16/18 [History] Acetaminophen 500 mg PO Q8H PRN 07/06/20 [History] Albuterol Sulfate [Proair Hfa] 2 puff IH QID PRN 07/06/20 [History] Alendronate Sodium 35 mg PO .WEEKLY 07/06/20 [History] Ascorbic Acid [Vitamin C] 500 mg PO DAILY 07/06/20 [History] Carboxymethylcellulose Sodium [Lubricant Eye Drops] 1 each EYELF Q1H PRN 07/06/20 [History] Cholecalciferol (Vitamin D3) [Vitamin D3] 25 mcg PO DAILY 07/06/20 [History] Cyanocobalamin (Vitamin B-12) [Cyanocobalamin Injection] 1,000 mcg IJ .MONTHLY 07/06/20 [History] Magnesium Oxide 400 mg PO DAILY 07/06/20 [History] Peacham-3 Acid Ethyl Esters 1 gm PO BID 07/06/20 [History] Omeprazole 20 mg PO DAILY 07/06/20 [History] Semaglutide [Ozempic] 0.5 mg SQ .WEEKLY 07/06/20 [History] Triamcinolone Acetonide [Triamcinolone Acetonide 0.1% Oint] 453.6 gm .XX BID PRN 07/06/20 [History] amLODIPine Besylate [Amlodipine Besylate] 5 mg PO DAILY 07/06/20 [History] hydroCHLOROthiazide [Hydrochlorothiazide] 50 mg PO DAILY 07/06/20 [History] mycophenolate mofetiL [Mycophenolate Mofetil] 1,000 mg PO BID 07/06/20 [History] Doxycycline [Vibramycin] 100 mg PO DAILY #14 cap 07/10/20 [Rx] Insulin Glarg,Human.Rec.Analog [Lantus] 35 unit SUBCUT BID ml 07/10/20 [Rx] Insulin Lispro [HumaLOG] 4 unit SUBCUT WITHBREAKFAST vial 07/10/20 [Rx] Insulin Lispro [HumaLOG] 4 unit SUBCUT WITHDINNER vial 07/10/20 [Rx] Insulin Lispro [HumaLOG] 4 unit SUBCUT WITHLUNCH vial 07/10/20 [Rx] hydrOXYzine HCL [hydrOXYzine] 25 mg PO BEDTIME PRN tablet 07/10/20 [Rx] oxyCODONE 5 mg PO Q6H PRN tablet 07/10/20 [Rx] Past Medical History HEENT History: Reports: Impaired Vision Cardiovascular History: Reports: High Cholesterol, Hypertension Respiratory History: Reports: Asthma, Bronchitis, Recurrent Gastrointestinal History: Reports: Cholelithiasis Genitourinary History: Reports: None 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 - Infectious Disease History Infectious Disease History: Reports: None, Novel Coronavirus - Past Surgical History Head Surgeries/Procedures: Reports: None GI Surgical History: Reports: Appendectomy, Cholecystectomy Social & Family History - Family History Family Medical History: No Pertinent Family History - Caffeine Use Caffeine Use: Reports: Coffee Other Caffeine Use: 1 cup/day - Living Situation & Occupation Living situation: Reports: with Family ED ROS GENERAL - Review of Systems Review Of Systems: Comprehensive ROS is negative, except as noted in HPI. ED EXAM, RENAL/ - Physical Exam Exam: See Below Exam Limited By: No Limitations General Appearance: Alert, WD/WN, No Apparent Distress Nose: Normal Inspection Throat/Mouth: Normal Lips, Normal Voice, No Airway Compromise Head: Atraumatic, Normocephalic Neck: Normal Inspection, Non-Tender, Full Range of Motion Respiratory/Chest: No Respiratory Distress, Lungs Clear, Chest Non-Tender Cardiovascular: Regular Rate, Rhythm GI/Abdominal: Normal Bowel Sounds, Soft, Non-Tender, No Organomegaly, No Distention, No Abnormal Bruit, No Mass Back Exam: CVA Tenderness (L), Decreased Range of Motion (Due to pain). No: CVA Tenderness (R), Paraspinal Tenderness, Vertebral Tenderness Extremities: Normal Inspection, Non-Tender Neurological: Alert, Oriented, No Motor/Sensory Deficits Psychiatric: Normal Affect, Normal Mood Skin Exam: Warm, Dry, Normal Color, No Rash Course - Vital Signs Last Recorded V/S: Last Vital Signs Temp 97.6 F 10/07/20 15:00 Pulse 92 10/07/20 15:00 Resp 18 10/07/20 15:00 BP 193/71 H 10/07/20 15:00 Pulse Ox 100 10/07/20 15:00 - Orders/Labs/Meds Orders: Active Orders 24 hr Category Date Time Status CBC WITH AUTO DIFF [HEME] Stat Lab 10/07/20 15:27 Received COMPREHENSIVE METABOLIC PN,CMP [CHEM] Stat Lab 10/07/20 15:27 Received LACTATE DEHYDROGENASE,LDH [CHEM] Stat Lab 10/07/20 15:27 Received UA RFX SCAR AND CULT IF INDIC [URIN] Stat Lab 10/07/20 15:02 Received Labs: [employer] issue: see scanned lab results. Meds: Medications Discontinued Medications Generic Name Dose Route Start Last Admin Trade Name Wilmerq PRN Reason Stop Dose Admin Hydromorphone HCl 1 mg 10/07/20 15:18 10/07/20 15:24 Hydromorphone 1 Mg/Ml Syringe IM 10/07/20 15:19 1 mg ONETIME ONE Administration Ondansetron HCl 4 mg 10/07/20 15:18 10/07/20 15:24 Ondansetron 4 Mg Tab.Dis PO 10/07/20 15:19 4 mg ONETIME ONE Administration Promethazine HCl 25 mg 10/07/20 16:43 Promethazine 25 Mg/Ml Sdv IM 10/07/20 16:44 ONETIME ONE - Radiology Interpretation Free Text/Narrative:: [facility] Final Radiology Report Call: [phone] assistance Online chat: [email or web address] Name: LAVELL SANON Age: 59Years F Date: 10/07/2020 SSN: -- : 1960 Study: CT ABDOMEN PELVIS WO CONT Requesting Physician: CYNTHIA CHÁVEZ Images: [id number] Addl Studies: Provided Clinical History: Severe left flank pain Contrast: Without Contrast Medium: Contrast Amount: Contrast Method: Page 1 of 2 PROCEDURE INFORMATION: Exam: CT Abdomen And Pelvis Without Contrast Exam date and time: 10/07/2020 3:49 PM Age: 59 years old Clinical indication: Other: Left flank pain; Additional info: Severe left flank pain TECHNIQUE: Imaging protocol: Computed tomography of the abdomen and pelvis without contrast. Radiation optimization: All CT scans at this facility use at least one of these dose optimization techniques: automated exposure control; mA and/or kV adjustment per patient size (includes targeted exams where dose is matched to clinical indication); or iterative reconstruction. COMPARISON: CT CHEST 03/03/2018 2:13 PM FINDINGS: Lungs: Mild lingular atelectasis. No lower lobe infiltrates. Mediastinal space: Small hiatal hernia. Liver: Normal. No mass. Gallbladder and bile ducts: Normal. No calcified stones. No ductal dilation. Pancreas: Normal. No ductal dilation. Spleen: Normal. No splenomegaly. Adrenal glands: Normal. No mass. Kidneys and ureters: Bilateral perirenal stranding. 2 cm right lower pole cortical indeterminate mass. No hydronephrosis. Stomach and bowel: Unremarkable. No obstruction. No mucosal thickening. Moderate stool load. No diverticulosis. No diverticulitis. Appendix: No evidence of appendicitis. Intraperitoneal space: Unremarkable. No free air. No significant fluid collection. LAVELL SANON | Final Radiology Report CONFIDENTIALITY STATEMENT This report is intended only for use by the referring physician, and only in accordance with law. If you received this in error, call [phone]. Page 2 of 2 Vasculature: Extensive splenic artery vascular calcifications with small dilated peripherally calcified stable splenic aneurysm measuring to 12 mm. Aortoiliac atherosclerotic calcification. Lymph nodes: Unremarkable. No enlarged lymph nodes. Urinary bladder: Unremarkable as visualized. Reproductive: Unremarkable as visualized. Bones/joints: L1 superior endplate invagination and Schmorl's node. Small sclerotic foci clustered in the right iliac bone. No acute fracture. Soft tissues: Subcutaneous distal abdominal skin thickening and edema, IMPRESSION: 1. Bilateral perirenal stranding. Exclude urinary tract infection. 2. Right lower pole 2 cm indeterminate renal mass. Recommend renal ultrasound to characterize. 3. Stable small splenic artery aneurysm and extensive atherosclerotic calcification. 4. Distal abdominal subcutaneous skin thickening and edema. Correlate clinically for superficial infection. 5. Right iliac bone sclerotic nodular densities of unknown etiology. Consider further characterization with MRI bony pelvis. Thank you for allowing us to participate in the care of your patient. Dictated and Authenticated by: Clara Clark MD 10/07/2020 4:49 PM Central Time ([place] & [place]) Departure - Departure Time of Disposition: 16:52 Disposition: Home, Self-Care 01 Condition: Fair Clinical Impression: Left flank pain, History of carcinoid syndrome, Right kidney mass - Discharge Information *PRESCRIPTION DRUG MONITORING PROGRAM REVIEWED*: No *COPY OF PRESCRIPTION DRUG MONITORING REPORT IN PATIENT CRISTINO: No Instructions: Flank Pain, Adult, [id number], Renal Mass Forms: ED Department Discharge Additional Instructions: Rx: Percocet 5mg/325mg Rx: Promethazine 25mg Follow up in clinic Friday for recheck and further evaluation and results of the ultrasound. Take the C.T. scan report from today's ER visit to clinic with you. Sepsis Event Note (ED) - Evaluation Sepsis Screening Result: No Definite Risk - Focused Exam Vital Signs: Vital Signs Temp Pulse Resp BP Pulse Ox 10/07/20 15:00 97.6 F 92 18 193/71 H 100 - My Orders Last 24 Hours: My Active Orders 10/07/20 15:02 UA RFX SCAR AND CULT IF INDIC [URIN] Stat 10/07/20 15:27 CBC WITH AUTO DIFF [HEME] Stat COMPREHENSIVE METABOLIC PN,CMP [CHEM] Stat LACTATE DEHYDROGENASE,LDH [CHEM] Stat - Assessment/Plan Last 24 Hours: My Active Orders 10/07/20 15:02 UA RFX SCAR AND CULT IF INDIC [URIN] Stat 10/07/20 15:27 CBC WITH AUTO DIFF [HEME] Stat COMPREHENSIVE METABOLIC PN,CMP [CHEM] Stat LACTATE DEHYDROGENASE,LDH [CHEM] Stat I have read and agree with the documentation that has been completed regarding this visit. By signing this record, I attest that the documentation was completed in my physical presence and is an accurate record of the encounter."
[2020-10-07 18:19] LABS: ANION GAP 16.8 mEq/L (7-13)
== END 2020-10-07 18:03 | disposition home or self-care (01) ==
LOC: DL.ED 14:46
DX: R10.9 Unspecified abdominal pain (principal); N28.89 Other specified disorders of kidney and ureter; E78.00 Pure hypercholesterolemia, unspecified; I10 Essential (primary) hypertension; J45.909 Unspecified asthma, uncomplicated; Z88.1 Allergy status to other antibiotic agents; Z88.5 Allergy status to narcotic agent; Z79.82 Long term (current) use of aspirin; Z79.899 Other long term (current) drug therapy; E11.9 Type 2 diabetes mellitus without complications; Z79.4 Long term (current) use of insulin
CPT/HCPCS: 36415; 74176; 80053; 81001; 83615; 85025; 96372; 99284; 99284-25; A9270-GY; J1170; J2550

== ENCOUNTER 2021-11-29 15:02 | Emergency (ER) | payer MEDICAID ==
[2021-11-29 15:53] VITALS: BP 160/69; PULSE 76
[2021-11-29 16:42] LABS: ANION GAP 14.4 mEq/L (7-13)
== END 2021-11-29 17:30 | disposition home or self-care (01) ==
LOC: DL.ED 15:02
DX: E86.0 Dehydration (principal); E11.9 Type 2 diabetes mellitus without complications; I10 Essential (primary) hypertension; Z88.1 Allergy status to other antibiotic agents; Z88.5 Allergy status to narcotic agent; Z79.84 Long term (current) use of oral hypoglycemic drugs; Z79.899 Other long term (current) drug therapy; Z79.82 Long term (current) use of aspirin; Z79.4 Long term (current) use of insulin; Z86.16 Personal history of COVID-19; Z90.49 Acquired absence of other specified parts of digestive tract; Z20.822 Contact with and (suspected) exposure to COVID-19
CPT/HCPCS: 36415; 80053; 82947; 83540; 83735; 85025; 99283; 99284; U0002

== ENCOUNTER 2022-03-28 14:31 | Emergency (ER) | payer MEDICAID ==
[2022-03-28] MEDS ORDERED: Sodium Chloride 0.9% 1,000 ML IV ONE (15:13)
[2022-03-28] MEDS ORDERED: Albuterol/Ipratropium 3.0-0.5 MG/3 ML Neb Soln NEB ONE (15:35)
[2022-03-28] MEDS ORDERED: cefTRIAXone 2 GM in Sodium Chloride 0.9% 100 ML IV ONE (15:36)
[2022-03-28] MEDS ORDERED: Azithromycin 500 MG in Sodium Chloride 0.9% 250 ML IV ONE (15:37)
[2022-03-28 15:51] VITALS: PULSE 83
[2022-03-28 16:09] LABS: ANION GAP 15.9 mEq/L (7-13); CHLORIDE,CL 99 mmol/L (98-107); SODIUM,NA 130 mmol/L (136-145)
[2022-03-28 16:10] LABS: ESTIMATED GFR 18 mL/min (>=60)
[2022-03-28 16:14] VITALS: BP 101/50
[2022-03-28] MEDS ORDERED: Ondansetron 4 MG/2 ML SDV IV ONE (16:37)
[2022-03-28] MEDS ORDERED: 25% Dextrose in Water 10 ML Syringe IVPUSH ONE (16:55)
[2022-03-28] MEDS ORDERED: Morphine 4 MG/ML Syringe IVPUSH ONE (16:59)
[2022-03-28] MEDS ORDERED: Dextrose 5%-0.9% NaCl 1,000 ML IV SCH (17:00)
[2022-03-28] MEDS ORDERED: Dextrose 5%-0.9% NaCl 1,000 ML IV ONE (17:21)
== END 2022-03-28 17:21 ==
LOC: DL.ED 14:31
DX: J18.9 Pneumonia, unspecified organism (principal); I12.9 Hypertensive chronic kidney disease with stage 1 through stage 4 chronic kidney disease, or unspecified chronic kidney disease; E11.22 Type 2 diabetes mellitus with diabetic chronic kidney disease; N18.9 Chronic kidney disease, unspecified; D63.1 Anemia in chronic kidney disease; E78.00 Pure hypercholesterolemia, unspecified; D51.9 Vitamin B12 deficiency anemia, unspecified; J45.909 Unspecified asthma, uncomplicated; Z88.1 Allergy status to other antibiotic agents; Z88.5 Allergy status to narcotic agent; Z79.82 Long term (current) use of aspirin; Z79.4 Long term (current) use of insulin; Z79.899 Other long term (current) drug therapy
CPT/HCPCS: 36415; 71045; 80053; 81001; 82947; 83605; 83880; 84484; 85025; 87040; 87086; 87088; 87186; 93005; 94640; 96365; 96367; 96375; 99285; J0456; J0696; J2270; J2405; J7030; J7042; J7050; J7620-GY

== ENCOUNTER 2022-05-06 19:32 | Observation (INO) | payer MEDICAID ==
[2022-05-06 19:58] LABS: ANION GAP 14.6 mEq/L (7-13); CHLORIDE,CL 104 mmol/L (98-107); SODIUM,NA 137 mmol/L (136-145)
[2022-05-06 20:04] LABS: ESTIMATED GFR 25 mL/min (>=60)
[2022-05-06 22:15] LABS: AMPHETAMINES,URINE NEGATIVE (NEGATIVE); BARBITURATES,URINE NEGATIVE (NEGATIVE); BENZODIAZEPINE,URINE NEGATIVE (NEGATIVE); MDMA (ECSTASY), URINE NEGATIVE (NEGATIVE); METHADONE,URINE NEGATIVE (NEGATIVE); METHAMPHETAMINES,URINE NEGATIVE (NEGATIVE); OPIATES,URINE NEGATIVE (NEGATIVE); OXYCODONE,URINE POSITIVE (NEGATIVE); PHENCYCLIDINE,URINE NEGATIVE (NEGATIVE); TCA,URINE NEGATIVE (NEGATIVE)
[2022-05-06 22:39] LABS: ANION GAP 14.7 mEq/L (7-13)
[2022-05-06] MEDS ORDERED: Insulin Regular, Human 100 Units/ML 3 ML Vial IV ONE (23:19)
[2022-05-06] MEDS ORDERED: 50% Dextrose in Water 50 ML Syringe IVPUSH ONE (23:21)
[2022-05-06] MEDS ORDERED: Furosemide 40 MG/4 ML VIAL IVPUSH ONE (23:21)
[2022-05-06] MEDS ORDERED: Acetaminophen 325 MG Tab PO PRN (23:22)
[2022-05-06] MEDS ORDERED: Sodium Polystyrene Sulfonate 15 GM/60 ML Susp 60 ML Bot PO ONE (23:22)
[2022-05-06] MEDS ORDERED: Albuterol 0.083% 2.5 MG/3 ML Neb Soln NEB ONE (23:30)
[2022-05-07] MEDS ORDERED: Acetaminophen/oxyCODONE 325-5 MG Tab PO ONE (02:00)
[2022-05-07] MEDS ORDERED: Ondansetron 4 MG/2 ML SDV IVPUSH PRN (07:35)
[2022-05-07] MEDS ORDERED: Docusate Sodium 100 MG Cap PO PRN (07:35)
[2022-05-07] MEDS ORDERED: Acetaminophen 325 MG Tab PO PRN (07:35)
[2022-05-07] MEDS ORDERED: Ondansetron 4 MG Tab.DIS PO PRN (07:35)
[2022-05-07] MEDS ORDERED: Sodium Chloride 0.9% 10 ML Syringe FLUSH PRN (07:35)
[2022-05-07] MEDS ORDERED: Glucagon,Human Recombinant 1 MG Vial IM PRN (07:39)
[2022-05-07] MEDS ORDERED: 50% Dextrose in Water 50 ML Syringe IVPUSH PRN (07:39)
[2022-05-07] MEDS: Insulin Lispro 100 Units/ML 3 ML Vial SUBCUT SCH ×2 (08:17→12:00)
[2022-05-07] MEDS ORDERED: Sodium Chloride 0.9% 10 ML Syringe FLUSH SCH (09:00)
[2022-05-07 11:43] VITALS: BP 129/64; PULSE 86
[2022-05-07] MEDS ORDERED: Heparin Sodium 5,000 Units/ML Vial SUBCUT SCH (14:00)
== END 2022-05-07 14:30 | disposition home or self-care (01) ==
LOC: DL.ED 19:32 → DL.MS 23:22 → DL.ED 05-07 00:12 → DL.MS 05-07 00:17 → UNDOADMOB 05-07 00:17
PROVIDERS: ADMIT Hospitalist; ATTEND Hospitalist
DX: E87.5 Hyperkalemia (principal); I12.9 Hypertensive chronic kidney disease with stage 1 through stage 4 chronic kidney disease, or unspecified chronic kidney disease; E11.22 Type 2 diabetes mellitus with diabetic chronic kidney disease; N18.4 Chronic kidney disease, stage 4 (severe); E78.00 Pure hypercholesterolemia, unspecified; J45.909 Unspecified asthma, uncomplicated; K21.9 Gastro-esophageal reflux disease without esophagitis; Z86.16 Personal history of COVID-19; Z79.899 Other long term (current) drug therapy; Z88.1 Allergy status to other antibiotic agents; Z88.5 Allergy status to narcotic agent; Z79.4 Long term (current) use of insulin; Z87.891 Personal history of nicotine dependence; Z90.49 Acquired absence of other specified parts of digestive tract; Z98.890 Other specified postprocedural states
CPT/HCPCS: 36415; 70450; 80048; 80053; 80061; 80305; 80307; 81001; 82947; 83735; 84484; 85025; 93005; 96374; 96375; 97165; 99223; 99238; 99285; A9270; J1815; J1940; J3490; J7613-GY

== ENCOUNTER 2024-05-09 19:54 | Emergency (ER) | payer SELFPAY ==
[2024-05-09] MEDS ORDERED: Sodium Chloride 0.9% 10 ML Syringe FLUSH PRN (20:10)
[2024-05-09 20:29] LABS: BASOPHILS PERCENT AUTO 0.4 % (0.0-1.0); EOSINOPHILS PERCENT AUTO 2.6 % (1.0-3.0); HEMATOCRIT 28.9 % (37.0-47.0); MEAN CORPUSCULAR HEMOGLOBIN 28.8 pg (27.0-34.0); MEAN CORPUSCULAR HGB CONC 31.1 g/dL (33.0-35.0); MEAN CORPUSCULAR VOLUME 92.3 fL (80-100); MONOCYTES PERCENT AUTO 8.5 % (2-8); NEUTROPHILS PERCENT AUTO 70.5 % (42.2-75.2); PLATELET COUNT,PLT 322 10^3/uL (150-450); RED BLOOD CELL COUNT 3.13 10^6/uL (4.2-5.4); WHITE BLOOD CELL COUNT,WBC 8.1 10^3/uL (5.0-10.0)
[2024-05-09 20:47] LABS: LACTIC ACID 0.6 mmol/L (0.4-2.0)
[2024-05-09 20:53] LABS: A/G RATIO 0.91; ALANINE AMINOTRANSFERASE,ALT 18 U/L (14-59); ALBUMIN 3.1 g/dL (3.4-5.0); ALKALINE PHOSPHATASE 168 U/L (46-116); ANION GAP 14.1 mEq/L (7-13); ASPARTATE AMNIOTRANSFERASE,AST 8 U/L (15-37); BILIRUBIN TOTAL 0.3 mg/dL (0.2-1.0); BLOOD UREA NITROGEN,BUN 35 mg/dL (7-18); BUN/CREATININE RATIO 10.5 (No establ ref range); CALCIUM 8.4 mg/dL (8.5-10.1); CARBON DIOXIDE,CO2 22 mmol/L (21-32); CHLORIDE,CL 103 mmol/L (98-107); CREATININE 3.34 mg/dL (0.55-1.02); EST CRCL DRUG DOSING (CG) 13.89 mL/min; ESTIMATED GFR 15 mL/min (>=60); GLUCOSE RANDOM 100 mg/dL (70-99); LIPASE 22 U/L (16-77); MAGNESIUM 2.3 mg/dL (1.8-2.4); POTASSIUM,K 4.1 mmol/L (3.5-5.1); PROTEIN TOTAL,TP 6.5 g/dL (6.4-8.2); SODIUM,NA 135 mmol/L (136-145); TSH ULTRASENSITIVE 3.61 uIU/mL (0.36-3.74)
[2024-05-09 20:55] LABS: ETHANOL BLOOD MEDICAL < 3 mg/dL (0)
[2024-05-09 21:05] LABS: APPEARANCE,URINE CLEAR (CLEAR); BILIRUBIN,URINE NEGATIVE (NEGATIVE); COLOR,URINE YELLOW (YELLOW); GLUCOSE,URINE NEGATIVE (NEGATIVE); KETONES,URINE NEGATIVE (NEGATIVE); LEUKOCYTE ESTERASE,URINE TRACE (NEGATIVE); NITRITE,URINE NEGATIVE (NEGATIVE); OCCULT BLOOD,URINE TRACE-INTACT (NEGATIVE); PH,URINE 5.5 (5.0-9.0); PROTEIN,URINE >=300 (NEGATIVE); UROBILINOGEN,URINE 0.2 mg/dL (0.2-1.0)
[2024-05-09 21:12] LABS: AMPHETAMINES,URINE NEGATIVE (NEGATIVE); BARBITURATES,URINE NEGATIVE (NEGATIVE); BENZODIAZEPINE,URINE NEGATIVE (NEGATIVE); MDMA (ECSTASY), URINE NEGATIVE (NEGATIVE); METHADONE,URINE NEGATIVE (NEGATIVE); METHAMPHETAMINES,URINE NEGATIVE (NEGATIVE); OPIATES,URINE NEGATIVE (NEGATIVE); OXYCODONE,URINE POSITIVE (NEGATIVE); PHENCYCLIDINE,URINE NEGATIVE (NEGATIVE); TCA,URINE NEGATIVE (NEGATIVE)
[2024-05-09 21:14] LABS: AMORPHOUS SEDIMENT,URINE MODERATE /HPF (NOT SEEN); BACTERIA,URINE FEW /HPF (0-FEW/HPF); EPITHELIAL CELLS,URINE FEW /HPF (NOT SEEN); MUCUS,URINE FEW /LPF (NOT SEEN); RBC,URINE 0-5 /HPF (0-5)
[2024-05-09 23:14] VITALS: BP 182/77; PULSE 71
== END 2024-05-09 23:24 | disposition home or self-care (01) ==
LOC: DL.ED 19:54
DX: J06.9 Acute upper respiratory infection, unspecified (principal); R53.1 Weakness; I12.9 Hypertensive chronic kidney disease with stage 1 through stage 4 chronic kidney disease, or unspecified chronic kidney disease; N18.4 Chronic kidney disease, stage 4 (severe); K21.9 Gastro-esophageal reflux disease without esophagitis; E78.00 Pure hypercholesterolemia, unspecified; E11.9 Type 2 diabetes mellitus without complications; Z88.1 Allergy status to other antibiotic agents; Z88.6 Allergy status to analgesic agent; Z79.4 Long term (current) use of insulin; Z79.899 Other long term (current) drug therapy; Z86.16 Personal history of COVID-19; Z90.49 Acquired absence of other specified parts of digestive tract; Z87.891 Personal history of nicotine dependence
CPT/HCPCS: 36415; 80053; 80305-QW; 80307; 81001; 83605; 83690; 83735; 84443; 84484; 85025; 87086; 87088; 87428-QW; 93005; 93010; 99285

== ENCOUNTER 2024-12-02 11:29 | Emergency (ER) | payer MEDICAID, MEDICARE ==
[2024-12-02] MEDS: Ondansetron 4 MG Tab.DIS PO ONE (11:52)
[2024-12-02 12:23] LABS: PLATELET COUNT,PLT 257 10^3/uL (150-450); RED BLOOD CELL COUNT 3.41 10^6/uL (4.2-5.4); WHITE BLOOD CELL COUNT,WBC 10.4 10^3/uL (5.0-10.0)
[2024-12-02 12:28] LABS: BASOPHILS PERCENT AUTO 0.4 % (0.0-1.0); EOSINOPHILS PERCENT AUTO 0.5 % (1.0-3.0); LYMPHOCYTES PERCENT AUTO 13.9 % (20.5-50.1); MONOCYTES PERCENT AUTO 8.8 % (2-8); NEUTROPHILS PERCENT AUTO 76.4 % (42.2-75.2)
[2024-12-02 12:35] VITALS: BP 130/67; PULSE 70
[2024-12-02 12:43] LABS: ALANINE AMINOTRANSFERASE,ALT 40 U/L (14-59); ASPARTATE AMNIOTRANSFERASE,AST 22 U/L (15-37); BAND PERCENT MAN 3 %; BILIRUBIN TOTAL 0.6 mg/dL (0.2-1.0); BLOOD UREA NITROGEN,BUN 32 mg/dL (7-18); CARBON DIOXIDE,CO2 27 mmol/L (21-32); CHLORIDE,CL 92 mmol/L (98-107); CREATININE 3.94 mg/dL (0.55-1.02); GLUCOSE RANDOM 237 mg/dL (70-99); LYMPHOCYTES PERCENT MAN 17 % (20-50); MONOCYTES PERCENT MAN 6 % (2-8); POTASSIUM,K 4.6 mmol/L (3.5-5.1); PROTEIN TOTAL,TP 6.3 g/dL (6.4-8.2); SEG NEUTROPHILS PERCENT MAN 74 % (42-75); SODIUM,NA 127 mmol/L (136-145)
[2024-12-02 12:44] LABS: A/G RATIO 1.10; ESTIMATED GFR 12 mL/min (>=60)
== END 2024-12-02 13:06 | disposition home or self-care (01) ==
LOC: DL.ED 11:29
DX: E87.1 Hypo-osmolality and hyponatremia (principal); I12.0 Hypertensive chronic kidney disease with stage 5 chronic kidney disease or end stage renal disease; N18.5 Chronic kidney disease, stage 5; E78.00 Pure hypercholesterolemia, unspecified; K21.9 Gastro-esophageal reflux disease without esophagitis; E11.22 Type 2 diabetes mellitus with diabetic chronic kidney disease; Z86.16 Personal history of COVID-19; Z88.1 Allergy status to other antibiotic agents; Z88.5 Allergy status to narcotic agent; Z79.899 Other long term (current) drug therapy; Z79.51 Long term (current) use of inhaled steroids; Z79.4 Long term (current) use of insulin; Z79.82 Long term (current) use of aspirin; Z99.2 Dependence on renal dialysis
CPT/HCPCS: 36415; 80053; 85025; 93005; 99284; A9270

== ENCOUNTER 2025-02-28 21:43 | Emergency (ER) | payer MEDICAID, MEDICARE ==
[~2025-02-28 21:43] MED LIST: Sodium Chloride 0.9% 10 ML Syringe FLUSH PRN
[2025-02-28 21:52] LABS: BASOPHILS PERCENT AUTO 0.6 % (0.0-1.0); EOSINOPHILS PERCENT AUTO 2.5 % (1.0-3.0); LYMPHOCYTES PERCENT AUTO 16.0 % (20.5-50.1); MONOCYTES PERCENT AUTO 6.7 % (2-8); NEUTROPHILS PERCENT AUTO 74.2 % (42.2-75.2); PLATELET COUNT,PLT 321 10^3/uL (150-450); RED BLOOD CELL COUNT 3.69 10^6/uL (4.2-5.4); WHITE BLOOD CELL COUNT,WBC 9.0 10^3/uL (5.0-10.0)
[2025-02-28 22:09] LABS: INR 0.9 (0.9-1.2); PTT,PARTIAL THROMBOPLSTIN TIME 25.6 SEC (22.0-34.0)
[2025-02-28 22:12] LABS: CHLORIDE,CL 94 mmol/L (98-107); POTASSIUM,K 5.7 mmol/L (3.5-5.1); SODIUM,NA 129 mmol/L (136-145)
[2025-02-28 22:13] LABS: A/G RATIO 0.9; ALANINE AMINOTRANSFERASE,ALT 42 U/L (14-59); ASPARTATE AMNIOTRANSFERASE,AST 17 U/L (15-37); BILIRUBIN TOTAL 0.5 mg/dL (0.2-1.0); BLOOD UREA NITROGEN,BUN 53 mg/dL (7-18); CARBON DIOXIDE,CO2 21 mmol/L (21-32); CREATININE 4.88 mg/dL (0.55-1.02); PROTEIN TOTAL,TP 7.2 g/dL (6.4-8.2)
[2025-02-28 22:18] LABS: ESTIMATED GFR 9 mL/min (>=60); ETHANOL BLOOD MEDICAL < 3 mg/dL (0); GLUCOSE RANDOM 436 mg/dL (70-99)
[2025-02-28] MEDS: Iopamidol 755 Mg/ML 100 ML Bottle IVPUSH ONE (22:23)
[2025-02-28] MEDS ORDERED: 50% Dextrose in Water 50 ML Syringe IVPUSH PRN (22:41)
[2025-03-01] MEDS: Insulin Regular, Human 100 Units/ML 10 ML Vial SUBCUT ONE (00:32)
[2025-03-01 02:09] VITALS: BP 168/65; PULSE 75
== END 2025-02-28 23:35 ==
LOC: DL.ED 21:43
DX: I63.9 Cerebral infarction, unspecified (principal); I12.9 Hypertensive chronic kidney disease with stage 1 through stage 4 chronic kidney disease, or unspecified chronic kidney disease; E11.22 Type 2 diabetes mellitus with diabetic chronic kidney disease; E78.00 Pure hypercholesterolemia, unspecified; J45.909 Unspecified asthma, uncomplicated; N18.9 Chronic kidney disease, unspecified; Z86.16 Personal history of COVID-19; Z90.49 Acquired absence of other specified parts of digestive tract
CPT/HCPCS: 36415; 70450; 70496; 70498; 80053; 80307; 82947; 83735; 84484; 85025; 85610; 85730; 93005; 93010; 96374; 99285; A9270; J1953; Q9967

== ENCOUNTER 2025-03-04 22:10 | Emergency (ER) | payer MEDICARE ==
[2025-03-04 22:23] VITALS: BP 149/61; PULSE 76
[2025-03-04] MEDS: Take Home: Amoxicillin 500 MG, 6 Cap Pack PO ONE (23:50)
== END 2025-03-04 23:57 | disposition home or self-care (01) ==
LOC: DL.ED 22:10
DX: R04.0 Epistaxis (principal); I12.9 Hypertensive chronic kidney disease with stage 1 through stage 4 chronic kidney disease, or unspecified chronic kidney disease; N18.9 Chronic kidney disease, unspecified; E78.00 Pure hypercholesterolemia, unspecified; K21.9 Gastro-esophageal reflux disease without esophagitis; E11.22 Type 2 diabetes mellitus with diabetic chronic kidney disease; J45.909 Unspecified asthma, uncomplicated; Z86.16 Personal history of COVID-19; Z90.49 Acquired absence of other specified parts of digestive tract; Z88.1 Allergy status to other antibiotic agents; Z88.5 Allergy status to narcotic agent; Z79.899 Other long term (current) drug therapy; Z79.82 Long term (current) use of aspirin; Z79.4 Long term (current) use of insulin
CPT/HCPCS: 30901; 36415; 85018; 99283; A9270